=== PATIENT | male | born 1950 | race Caucasian/White ===

== ENCOUNTER 2018-03-05 15:22 | Inpatient (IN) | payer BC ==
[~2018-03-05 15:22] MED LIST: ISOVUE-370 76%-LOCM 1 ML ONE
[2018-03-05 16:00] LABS: #Lymphocytes 0.9 thou/uL (1.20-3.40); #Monocytes 0.6 thou/uL (0.11-0.59); %Basophils 0.4 % (0.0-1.0); %Eosinophils 0.3 % (0.0-10.0); %Lymphocytes 11.9 % (21.0-51.0); %Monocytes 7.4 % (0.0-10.0); %Neutrophils 80.1 % (42.0-75.0); Hemoglobin 15.5 g/dL (14.0-18.0); Mean Corpuscular HGB CONC 32.2 g/dL (32.0-36.0); Mean Corpuscular Hemoglobin 32.8 pg (27.0-31.0); Mean Platelet Volume 9.6 fL (7.4-10.4); Platelet Count 125 thou/uL (130-400); RBC Distribution Width 14.5 % (11.5-14.5); Red Blood Cell (RBC) Count 4.74 mill/uL (4.70-6.10); White Blood Cell (WBC) Count 7.4 thou/uL (4.8-10.8)
--- NOTE | 2018-03-05 16:07 | RAD ---
AP CHEST: History: Chest pain. Shortness of breath. Date: 03-05-18 Comparison: 09-22-10 FINDINGS: AP chest demonstrates cardiomegaly. Sternotomy wires are seen. There is blunting of the right costoph renic angle compatible with a right sided pleural effusion. Extensive pulmonary vascular congestion is noted. IMPRESSION: 1. Right sided pleural effusion with some component of possible right lower lobe pneumonia or mass. 2. Cardiomegaly and pulmonary vascular congestion. POS: JED
[2018-03-05 16:18] LABS: ALT (SGPT) 18 U/L (8-55); AST (SGOT) 33 U/L (5-34); Albumin 3.8 g/dL (3.4-4.8); Alkaline Phosphatase 93 U/L (40-150); Anion Gap 15 mmol/L (10-20); BUN (Urea Nitrogen) 11 mg/dL (8.4-25.7); Bilirubin, Total 1.5 mg/dL (0.2-1.2); CK (CPK) 236 U/L (30-200); Calc. Creatinine Clearance 0 mL/min (70-130); Calcium 9.6 mg/dL (7.8-10.44); Carbon Dioxide 26 mmol/L (23-31); Chloride 99 mmol/L (98-107); Estimated GFR-MDRD 66; Globulin 4.8 g/dL (2.4-3.5); Glucose 164 mg/dL (80-115); Lipase 25 U/L (8-78); Potassium 3.5 mmol/L (3.5-5.1); Protein, Total 8.6 g/dL (5.8-8.1); Sodium 136 mmol/L (136-145)
[2018-03-05 16:22] LABS: Troponin I 0.126 ng/mL (< 0.028)
[2018-03-05 16:24] LABS: CKMB 9.7 ng/mL (0-6.6)
[2018-03-05] MEDS ORDERED: Nitroglycerin 2% Ointment 1 INCH/1 GM Packet ONE (16:46)
[2018-03-05] MEDS ORDERED: Morphine 4 MG/ML VIAL ONE (17:34)
[2018-03-05] MEDS ORDERED: methylPREDNISolone Sod Succ/PF 125 MG/2 ML VIAL ONE (17:35)
[2018-03-05] MEDS ORDERED: Furosemide 40 MG/4 ML VIAL ONE (17:35)
--- NOTE | 2018-03-05 18:41 | CT ---
CTA CHEST WITH 3D VOLUME RENDERIN03/05/18 INDICATION: Chest pain, short of breath. FINDINGS: No large, central filling defect to indicate pulmonary embolus. Limited evaluation of the distal, seg mental pulmonary arterial branches due to heterogeneity of contrast bolus. There is consolidation of the right middle and lower lobe with moderate volume pleural fluid demonstrating complex morphology. There is abnormal interstitial opacification with honeycombing bilaterally. Mild scattered ground gla ss alveolar opacities are also seen. Incidental note of cirrhotic morphology of the liver and moderat e distention of the gallbladder. Incomplete assessment of the aorta on the basis of the technique of this exam. Mildly enlarged thoracic lymph nodes are present, of indeterminate etiology. There is scat tered osseous degenerative change and evidence of prior sternotomy. IMPRESSION: No large, central pulmonary embolus. Multifocal consolidation of the right lung with complex appearin g moderate volume right pleural fluid. Findings suggests pneumonia with complex pleural fluid, theref ore empyema is not excluded. Recommend clinical correlation. Findings are superimposed upon pulmonary fibrosis. Recommend pulmonology consultation, and imaging followup to confirm resolution of multifocal opacitie s, as underlying neoplasm not excluded on the basis of this exam. Mild enlargement of the regional lymph nodes which may be followed at time of short term imaging foll owup. POS: SJ
--- NOTE | 2018-03-05 18:50 | HP ---
DATE OF ADMISSION: 03/05/2018 PRIMARY CARE PHYSICIAN: Dr. Faust at [facility]. PRIMARY RESEARCH EXECUTIVE: Dr. Mcnamara. Please note that patient has not seen Dr. Mcnamara for last 2 y ears or so. CHIEF COMPLAINT: Chest discomfort along with shortness of breath and bilateral lower extremity swell ing for last few weeks. It got worse over the last 1-2 days. HISTORY OF PRESENT ILLNESS: Patient is a 67-year-old male with coronary artery disease, status post coronary artery bypass grafting x4 in 2009, presented to the emergency room with the above complaints . The patient has history of chronic low back pain. He also has history of several falls in the pas t. Four months ago, the patient was started on Lyrica along with naproxen. Patient has discontinued Lyrica; however, continues to take naproxen. Over the past few weeks or so, the patient noticed gra dual worsening shortness of breath along with bilateral lower extremity swelling, right more than lef t. He also had intermittent chest pain, especially on exertion over the last 1-2 days. He was unabl e to lie down flat. He also had some wheezing along with mild productive cough. The chest discomfor t was substernal, moderate to severe in intensity without any aggravating or relieving factor. He de nies recent immobilization, travel, palpitations, diaphoresis, or nausea. He is compliant with his h ome medications that include aspirin, Lasix, inhalers, and naproxen. PAST MEDICAL HISTORY: 1. Coronary artery disease, status post coronary artery bypass grafting in 2009. 2. Hyperlipidemia. 3. GERD. 4. History of GI bleeding. 5. COPD. 6. Congestive heart failure, ejection fraction 25%-30% in the past. 7. Mitral regurgitation. 8. Aortic insufficiency. PAST SURGICAL HISTORY: 1. Coronary artery bypass grafting x4 in 2009. 2. Mitral ring annuloplasty at the time of CABG. 3. Testicular biopsy. ALLERGIES: PENICILLIN. FAMILY HISTORY: Negative for coronary artery disease. SOCIAL HISTORY: Patient smokes up to 1 pack a day. He also abuses cannabis. Denies significant alc ohol use. 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 HOME MEDICATIONS: As discussed above. REVIEW OF SYSTEMS: The following complete review of systems was negative, unless otherwise mentioned in the HPI or below: Constitutional: Weight loss or gain, ability to conduct usual activities. Sk in: Rash, itching. Eyes: Double vision, pain. ENT/Mouth: Nose bleeding, neck stiffness, pain, te nderness. Cardiovascular: Palpitations, dyspnea on exertion, orthopnea. Respiratory: Shortness of breath, wheezing, cough, hemoptysis, fever or night sweats. Gastrointestinal: Poor appetite, abdom inal pain, heartburn, nausea, vomiting, constipation, or diarrhea. Genitourinary: Urgency, frequenc y, dysuria, nocturia. Musculoskeletal: Pain, swelling. Neurologic/Psychiatric: Anxiety, depressio n. Allergy/Immunologic: Skin rash, bleeding tendency. PHYSICAL EXAMINATION: VITAL SIGNS: Temperature 98.4, respiration of 28, pulse rate of 103, blood pressure 136/83. His O2 saturation at the time of my evaluation is dropping in high 80s. GENERAL: A 67-year-old male in mild to moderate respiratory distress, able to complete short phrases . HEENT: Atraumatic, normocephalic, sclerae are anicteric. Dry mucous membrane, no oral lesion. NECK: Supple. JVD elevated. There is accessory muscle use. LUNGS: Diffuse expiratory wheezing with bibasilar rales. Lungs were symmetrical. There was scatter ed rhonchi as well. HEART: S1, S2 present, tachycardic, 2/6 systolic murmur over the mitral area. No heaves or pulsatio n. Healed midline scar from previous CABG. ABDOMEN: Soft, nontender, bowel sounds present, no rebound or guarding. EXTREMITIES: Bilateral lower extremity edema, right more than left with changes consistent with auditor/quality janie venous stasis, mainly in the right. NEUROLOGIC: Grossly nonfocal, moves all four extremities. PSYCHIATRY: Alert, awake, oriented x3. SKIN: Warm and dry. LYMPH NODES: No palpable lymph nodes in the neck. PERIPHERAL VASCULAR: Radial pulses palpable bilaterally. MUSCULOSKELETAL: No joint swelling or tenderness. SKIN: Warm and dry. LABORATORY AND X-RAY FINDINGS: CBC showed WBC of 7.4 with hemoglobin 15.5, hematocrit 48.2, and plat elet count of 125. Chemistries showed sodium 136, potassium 3.5, chloride 99, bicarbonate 26, BUN 11 , creatinine 1.11. Troponin of 0.126 with CK-MB 9.7. CK was 236. EKG by my review showed sinus tac hycardia with PVCs. Chest x-ray by my review showed cardiomegaly with pulmonary vascular congestion. CT angiogram of the chest has been done, report pending at this time. IMPRESSION AND PLAN: 1. Acute hypoxic respiratory failure secondary to congestive heart failure exacerbation. 2. Chest pain with suspected non-ST elevation myocardial infarction, rule out acute coronary syndrom e. 3. Acute on chronic systolic heart failure exacerbation. 4. Coronary artery disease, status post coronary artery bypass grafting. 5. Severe mitral regurgitation, status post mitral ring annuloplasty in 2009. 6. History of gastrointestinal bleeding, on aspirin. 7. Ongoing tobacco abuse. 8. Cannabis abuse. 9. Chronic obstructive pulmonary disease with possible chronic obstructive pulmonary disease exacerb ation. 10. Hyperlipidemia. 11. Moderate aortic insufficiency. PLAN: The patient will be monitored in the intermediate care unit. We will start him on diuretics a long with nitro patch, oxygen, steroids, and nebulizer treatment. We will start him on noninvasive p ositive pressure ventilation. Cardiology and Pulmonary will be consulted in a.m. Serial troponins. We will give him magnesium and potassium tonight. We will recheck labs in a.m. Plan of care was discussed with the patient in detail. He stated understanding.
[2018-03-05] MEDS ORDERED: Nitroglycerin 0.4 MG TAB (25 Tab Bottle) PO PRN (18:58)
[2018-03-05] MEDS ORDERED: Lorazepam 0.5 MG TAB PO PRN (18:58)
[2018-03-05] MEDS ORDERED: Ondansetron ODT 4 MG TAB PO PRN (18:58)
[2018-03-05] MEDS ORDERED: HYDROcodone/Acetaminophen 5/325 mg Tablet PO PRN (18:58)
[2018-03-05] MEDS ORDERED: Ondansetron HCl/PF 4 MG/2 ML Vial IVP PRN ×2 (18:58)
[2018-03-05] MEDS ORDERED: Morphine 4 MG/ML VIAL SLOW IVP PRN (18:58)
[2018-03-05] MEDS ORDERED: Senokot 8.6 MG TAB PO PRN (18:58)
[2018-03-05] MEDS ORDERED: hydrALAZINE 20 MG/ML VIAL SLOW IVP PRN (18:58)
[2018-03-05] MEDS ORDERED: Ondansetron ODT 4 MG TAB SL PRN (18:58)
[2018-03-05] MEDS ORDERED: Acetaminophen 325 MG TAB PO PRN ×2 (18:58)
[2018-03-05] MEDS ORDERED: Magnesium 2 GM/NS 0.9% 100 ML 2 GM in Premix Bag 1 BAG IVPB SCH (19:15)
[2018-03-05] MEDS ORDERED: Potassium Chloride 40 MEQ in Sodium Chloride 0.9% 250 ML 250 ML IVPB SCH (19:30)
[2018-03-05] MEDS: cefTRIAXone\\ROCEPHIN 1 GM, Syringe 0.4 ML in Sterile Water 9.6 ML SLOW IVP SCH (19:55)
[2018-03-05 20:11] VITALS: BMI 31.3
[2018-03-05] MEDS: Famotidine 20 MG TAB PO SCH (20:25)
[2018-03-05] MEDS: Docusate 100 MG CAP PO SCH (20:25)
[2018-03-05] MEDS ORDERED: cefTRIAXone\\ROCEPHIN 1 GM in Sodium Chloride 0.9% 100 ML IVPB SCH (21:00)
[2018-03-05] MEDS: Furosemide 40 MG/4 ML VIAL SLOW IVP SCH (22:21)
[2018-03-06] MEDS: Nitroglycerin 2% Ointment 1 INCH/1 GM Packet TOP SCH ×5 (00:15→23:42)
[2018-03-06 05:47] LABS: Hemoglobin 15.7 g/dL (14.0-18.0); Mean Corpuscular HGB CONC 31.5 g/dL (32.0-36.0); Mean Corpuscular Hemoglobin 32.2 pg (27.0-31.0); Mean Platelet Volume 9.9 fL (7.4-10.4); Platelet Count 138 thou/uL (130-400); RBC Distribution Width 14.6 % (11.5-14.5); Red Blood Cell (RBC) Count 4.88 mill/uL (4.70-6.10)
[2018-03-06 05:50] LABS: Band 1 % (5-11); Lymphocytes 4 % (21-51); Neutrophil 95 % (42-75)
[2018-03-06 05:51] LABS: MDiff Complete? YES
[2018-03-06 05:53] LABS: Troponin I 0.124 ng/mL (< 0.028)
[2018-03-06 05:59] LABS: ALT (SGPT) 20 U/L (8-55); AST (SGOT) 32 U/L (5-34); Albumin 4.1 g/dL (3.4-4.8); Alkaline Phosphatase 94 U/L (40-150); Anion Gap 15 mmol/L (10-20); BUN (Urea Nitrogen) 13 mg/dL (8.4-25.7); Bilirubin, Total 0.9 mg/dL (0.2-1.2); Calc. Creatinine Clearance 81 mL/min (70-130); Calcium 9.8 mg/dL (7.8-10.44); Carbon Dioxide 27 mmol/L (23-31); Cardiac Risk 5.2 (Less than 4.5); Chloride 98 mmol/L (98-107); Cholesterol 177 mg/dl (< 200 Desired); Estimated GFR-MDRD 61; Glucose 144 mg/dL (80-115); HDL Cholesterol 34 mg/dL (>60 Neg Risk); LDL Cholesterol, Calculated 127 mg/dL; Magnesium 2.3 mg/dL (1.6-2.6); Phosphorus 4.2 mg/dL (2.3-4.7); Potassium 4.4 mmol/L (3.5-5.1); Protein, Total 9.1 g/dL (5.8-8.1); Sodium 136 mmol/L (136-145); Triglycerides 79 mg/dL (Less than 150)
[2018-03-06 06:05] LABS: CKMB 8.7 ng/mL (0-6.6); Critical Call CKMBM RESULT DECREASING
[2018-03-06] MEDS: Furosemide 40 MG/4 ML VIAL SLOW IVP SCH ×2 (06:21→14:20)
[2018-03-06] MEDS: Mometasone/Formoterol 120 PUFF INHALER INH SCH ×2 (07:24→18:39)
--- NOTE | 2018-03-06 08:19 | RAD ---
PORTABLE CHEST 1 VIEW: Date: 03/06/18 Time: 0536 hours HISTORY: Shortness of breath. FINDINGS: Comparison made with exam from previous day. No significant interval change is seen. IMPRESSION: Stable exam. POS: OFF
[2018-03-06] MEDS: Famotidine 20 MG TAB PO SCH ×2 (08:27→20:32)
[2018-03-06] MEDS: Potassium Chloride 20 MEQ TAB PO SCH ×2 (08:27→17:17)
[2018-03-06] MEDS: Docusate 100 MG CAP PO SCH ×2 (08:27→20:32)
[2018-03-06] MEDS: Aspirin 325 MG TAB PO SCH (08:27)
[2018-03-06] MEDS ORDERED: Doxycycline 100 MG CAP PO SCH (12:00)
--- NOTE | 2018-03-06 13:25 | CON ---
CARDIOLOGY CONSULTATION NOTE DATE OF CONSULTATION: 03/06/2018 REASON FOR CONSULTATION: Heart failure. PRIMARY CARD PAINTER: Arnold Mcnamara M.D. HISTORY OF PRESENT ILLNESS: Mr. Herrera is a very pleasant 67-year-old white gentleman who comes to [facility] for increased shortness of breath. He had noticed increased shortness of breath and bila teral lower extremity swelling for the last few weeks, worsening in the last 1-2 days, so he decided to come in for this. He has a history of coronary artery disease, had bypass grafting x4 [place] [address] Martin. He followed up with Dr. Mcnamara up until 2011. He has not seen him in the office since. He stopped all of his medications recently as he felt this was the problem and he presented here ye sterday for difficulty breathing. He already received a few doses of Lasix and has diuresed well and feels much better now, not quite to his baseline, but breathing is back to normal, so Cardiology is being consulted for further evaluation. His EF back in 2009 when he needed surgery was about 25% to 30%. PAST MEDICAL HISTORY: 1. Coronary artery disease as above. 2. Hyperlipidemia. 3. Gastroesophageal reflux disease. 4. Gastrointestinal bleeding in the past. 5. Chronic obstructive pulmonary disease. 6. Ischemic cardiomyopathy, EF of 25% to 30% in the past. 7. Mild MR. 8. AI. PAST SURGICAL HISTORY: 1. CABG x4 in 2009. 2. Mitral annuloplasty at the time of the bypass. 3. Testicular biopsy. OUTPATIENT MEDICATIONS: None currently. ALLERGIES: PENICILLIN. HOME MEDICATIONS: 1. Lasix 40 mg a day. 2. Lyrica 100 mg b.i.d. 3. Naproxen 500 mg b.i.d. 4. Levalbuterol. 5. Aspirin 81 mg a day. SOCIAL HISTORY: Smokes up to a pack a day, uses marijuana as well. Denies alcohol use. FAMILY HISTORY: Noncontributory. REVIEW OF SYSTEMS: Twelve-point review of systems was done and is all negative unless stated in the history of present illness. PHYSICAL EXAMINATION: VITAL SIGNS: Temperature 97.5, pulse 90, respiration rate 16, satting 94% on 3 liters nasal cannula and blood pressure 146/78. GENERAL: Awake, alert and oriented x3, in no distress. HEENT: Normocephalic and atraumatic. NECK: Supple. LUNGS: Reduced breath sounds bilaterally with expiratory wheezes with mild crackles at bilateral bas es. ABDOMEN: Soft. Positive bowel sounds. CARDIOVASCULAR: S1 and S2. No S3 or S4. EXTREMITIES: 1+ edema bilateral. SKIN: Warm and dry. LABORATORY DATA: Laboratory work was reviewed. CBC was reviewed. Chemistries were reviewed. Tropo nins were 0.12 and 0.12. CK-MB was high at 9.7 and 8.7. TSH was normal. Lipase was normal. LDL of 127, HDL of 34, total cholesterol 177, triglycerides of 79, BUN and creatinine were normal. GFR of 61. BNP was 673. IMAGING DATA: CT of the thorax showed what appeared to be either pneumonia or pulmonary edema with a right pleural effusion. Echocardiogram has already been reviewed from today. His LV function is about 40% to 45%. Grade I/I II diastolic dysfunction. There is mild TR. Mitral annular calcification was present, but this is p robably ring annuloplasty and there is mild to moderate aortic regurgitation. ASSESSMENT: 1. Acute on chronic systolic heart failure. 2. Coronary artery disease, stable at this time. 3. Status post bypass grafting x5. 4. Status post mitral valve annuloplasty. 5. Possible pneumonia. 6. Medication noncompliance. PLAN: 1. Agree with continued IV diuresis. He is still not quite back to his baseline. I have encouraged him to continue taking all his medications indefinitely without stopping them. If he does for now, he needs to get a hold of this. He also been counseled on followup appointments that this is somethi ng that needs to be done for the rest of his life. 2. We will add a statin to his regimen, continue aspirin. Beta juilano maybe somewhat prohibitive d ue to his COPD, but we will attempt to add it in the next few days. 3. Add BRODIE inhibitor. Thank you for letting us to participate in the care of your patient. We will continue to follow.
--- NOTE | 2018-03-06 20:20 | PDOC.PN ---
- Subjective Encounter Start Date: 03/06/18 Encounter Start Time: 10:00 Patient seen and examined. No new complaints. No overnight events. SOB improving. Off NIPPV. No CP - Objective Resuscitation Status: Resuscitation Status FULL:Full Resuscitation MAR Reviewed: Yes Vital Signs & Weight: Vital Signs (12 hours) Temp Pulse Pulse Pulse Resp BP BP 03/06/18 18:38 86 16 03/06/18 16:43 97.8 F 100 16 03/06/18 13:36 99 18 03/06/18 13:00 03/06/18 11:31 98.4 F 97 19 03/06/18 10:59 107 H 20 03/06/18 10:23 109 H 107 H 129/71 146/78 H BP Pulse Ox Pulse Ox Pulse Ox 03/06/18 18:38 96 03/06/18 16:43 130/74 92 L 03/06/18 13:36 97 03/06/18 13:00 91 L 03/06/18 11:31 123/65 90 L 03/06/18 10:59 03/06/18 10:23 92 L 94 L Weight Weight 216 lb 3.2 oz I&O: 03/05/18 03/06/18 03/07/18 06:59 06:59 06:59 Intake Total 910 425 Output Total 2500 450 Balance -1590 -25 Result Diagrams: 03/07/18 03:53 03/07/18 03:53 Radiology Reviewed by me: Yes (CTA - ?pneumonia) EKG Reviewed by me: Yes (Tele SR) Phys Exam - Physical Examination Constitutional: NAD HEENT: PERRLA Neck: no JVD Respiratory: wheezing present Bibasilar rales, Scat rhonchi, Symmetrical Cardiovascular: RRR, no rub Gastrointestinal: soft, non-tender, no distention, positive bowel sounds Musculoskeletal: pulses present, edema present Neurological: non-focal, normal sensation, moves all 4 limbs Psychiatric: normal affect, A&O x 3 Skin: no rash Dx/Plan - Plan continue antibiotics, DVT proph w/lovenox, DVT proph w/SCDs IMPRESSION AND PLAN: 1. Acute hypoxic respiratory failure secondary to congestive heart failure exacerbation. 2. Chest pain with suspected non-ST elevation myocardial infarction, rule out acute coronary syndrome. 3. Acute on chronic systolic heart failure exacerbation. 4. Coronary artery disease, status post coronary artery bypass grafting. 5. Severe mitral regurgitation, status post mitral ring annuloplasty in 2010. 6. History of gastrointestinal bleeding, on aspirin. 7. Ongoing tobacco abuse. 8. Cannabis abuse. 9. Chronic obstructive pulmonary disease with possible chronic obstructive pulmonary disease exacerbation. 10. Hyperlipidemia. 11. Moderate aortic insufficiency. PLAN: * Add Doxycycline * Cont diuretics * AM labs * Await Cardio/Pulm input * Cont steroids * Transfer to tele * Cont current meds as below Review of Systems - Review of Systems Constitutional: negative: fever, chills, sweats, weakness, malaise, other Respiratory: negative: Cough, Dry, Shortness of Breath, Hemoptysis, SOB with Excertion, Pleuritic Pain, Sputum, Wheezing Gastrointestinal: negative: Nausea, Vomiting, Abdominal Pain, Diarrhea, Constipation, Melena, Hematochezia, Other - Medications/Allergies Allergies/Adverse Reactions: Allergies Allergy/AdvReac Type Severity Reaction Status Date / Time Penicillins Allergy Verified 03/06/18 06:20 Medications: Current Medications Acetaminophen (Tylenol) 650 mg PO Q4H PRN PRN Reason: Headache/Fever or Pain Hydrocodone Bitart/Acetaminophen ([place] 5/325) 1 tab PO Q6H PRN PRN Reason: Moderate Pain (4-6) Albuterol/Ipratropium (Duoneb) 3 ml NEB [id number] [facility] Last Admin: 03/06/18 18:38 Dose: 3 ml Albuterol/Ipratropium (Duoneb) 3 ml NEB Q2H PRN PRN Reason: SOB &/or Wheezing Aspirin (Aspirin) 325 mg PO QAM-WM [facility] Last Admin: 03/06/18 08:27 Dose: 325 mg Docusate Sodium (Colace) 100 mg PO BID [facility] Last Admin: 03/06/18 08:27 Dose: 100 mg Doxycycline Hyclate (Vibramycin) 100 mg PO BID [facility] Famotidine (Pepcid) 20 mg PO BID [facility] Last Admin: 03/06/18 08:27 Dose: 20 mg Furosemide (Lasix) 40 mg SLOW IVP 0600,1400 [facility] Last Admin: 03/06/18 14:20 Dose: 40 mg Hydralazine HCl (Apresoline) 10 mg SLOW IVP Q4H PRN PRN Reason: SBP Greater Than 180 Ceftriaxone Sodium 1 gm/ (Syringe 0.4 ml/ Sterile Water) 10 mls @ 120 mls/hr SLOW IVP 1999 [facility] Last Admin: 03/05/18 19:55 Dose: 10 mls Lorazepam (Ativan) 0.5 mg PO Q6H PRN PRN Reason: Anxiety Methylprednisolone Sodium Succinate (Solu-Medrol) 20 mg IVP Q8HR [facility] Last Admin: 03/06/18 14:20 Dose: 20 mg Mometasone Furoate/Formoterol Fumar (Dulera 200 Mcg/5 Mcg Inhaler) 2 puff INH BID-RT [facility] Last Admin: 03/06/18 18:39 Dose: 2 puff Nitroglycerin (Nitrostat) 0.4 mg PO Q5MIN PRN PRN Reason: Chest Pain Nitroglycerin (Nitro-Bid 2% Ointment) 1 inch TOP Q6HR [facility] Last Admin: 03/06/18 17:17 Dose: 1 inch Ondansetron HCl (Zofran) 4 mg IVP Q6H PRN PRN Reason: Nausea/Vomiting Ondansetron HCl (Zofran Odt) 4 mg PO Q6H PRN PRN Reason: Nausea/Vomiting Potassium Chloride (K-Dur) 20 meq PO BID-WM [facility] Last Admin: 03/06/18 17:17 Dose: 20 meq Senna (Senokot) 2 tab PO HSPRN PRN PRN Reason: Constipation Sodium Chloride (Flush - Normal Saline) 10 ml IVF PRN PRN PRN Reason: Saline Flush
[2018-03-06] MEDS: cefTRIAXone\\ROCEPHIN 1 GM, Syringe 0.4 ML in Sterile Water 9.6 ML SLOW IVP SCH (20:31)
[2018-03-06] MEDS: Doxycycline 100 MG CAP PO SCH (20:32)
--- NOTE | 2018-03-06 23:51 | CON ---
HISTORY OF PRESENT ILLNESS: Stuart Herrera is a very pleasant 67-year-old gentleman who was admitted for cough and shortness of breath. He said he has had a cough for several weeks and shortness of breath, but no purulent sputum or hemoptysis. He has been seen by the timber robber and the thoracic surgeons in the past after he had heart surgery in 2009. He has been followed up with Dr. Mcnamara since 2011. He also stopped all of his medicines. He presents with an abnormal radiograph and chest CT. I was consulted. PAST MEDICAL HISTORY: 1. Remarkable for coronary artery bypass grafting. 2. History of cardiomyopathy with an ejection fraction of 30%. 3. Lipid disorder. 4. GI bleeding with reflux disease in the past. 5. History of mitral regurgitation and aortic insufficiency. 6. History of mitral valve annuloplasty with bypass in 2009. 7. History of testicular biopsy. ALLERGIES: He is on no medications on admission. SOCIAL HISTORY: He is a daily smoker and daily marijuana user he says. He denies alcohol use. He is also a daily bourbon drinker. FAMILY HISTORY: Negative for lung disease. REVIEW OF SYSTEMS: 10 point system completely negative otherwise. He says his last drink was 3 days ago. He has never had withdrawal. He says he only has 1 bourbon drink at night. PHYSICAL EXAMINATION: GENERAL: Patient is a very pleasant gentleman. VITAL SIGNS: Afebrile, heart rate 86, respiratory rate 16, oximetry is 96 on 3 liter cannula. Blood pressure 130/74. HEENT: Pupils are equal. Sclerae is anicteric. NECK: Supple. He appears older than his age. LUNGS: Remarkable for crackles intermediate up on the right. He has fine crackles at his left base. Really does not have much dullness to percussion at his right base. HEART: Regular rhythm. S1 and S2 are normal. ABDOMEN: Soft and nontender. EXTREMITIES: Without clubbing, cyanosis, or edema. DIAGNOSTIC DATA: Chest radiograph suggestive of an organizing effusion at his right base. Chest CT suggests the same. No pulmonary emboli identified. He has an alveolar infiltrate in his right base. IMPRESSION: 1. Pneumonia with parapneumonic effusion. 2. Noncompliance with medical followup and noncompliance with prescription medications after heart surgery with a cardiomyopathy. I will repeat a radiograph in the morning. This effusion could be improved with diuresis. PLAN: We may consider thoracentesis. He has nothing to suggest. He has an infected pleural space, but he could have a complex effusion. This is a 50-minute consult with greater than 50% of the time was spent on unit coordinating care. NEYDA
[2018-03-07 04:30] LABS: Band 9 % (5-11); Hemoglobin 15.4 g/dL (14.0-18.0); Lymphocytes 2 % (21-51); MDiff Complete? YES; Mean Corpuscular HGB CONC 32.4 g/dL (32.0-36.0); Mean Corpuscular Hemoglobin 32.9 pg (27.0-31.0); Mean Platelet Volume 9.9 fL (7.4-10.4); Monocytes 8 % (0-10); Neutrophil 81 % (42-75); Platelet Count 147 thou/uL (130-400); RBC Distribution Width 14.5 % (11.5-14.5); Red Blood Cell (RBC) Count 4.69 mill/uL (4.70-6.10); White Blood Cell (WBC) Count 14.6 thou/uL (4.8-10.8)
[2018-03-07 04:50] LABS: ALT (SGPT) 19 U/L (8-55); AST (SGOT) 34 U/L (5-34); Albumin 4.1 g/dL (3.4-4.8); Alkaline Phosphatase 98 U/L (40-150); Anion Gap 18 mmol/L (10-20); BUN (Urea Nitrogen) 24 mg/dL (8.4-25.7); Bilirubin, Total 0.6 mg/dL (0.2-1.2); Calc. Creatinine Clearance 68 mL/min (70-130); Calcium 9.9 mg/dL (7.8-10.44); Carbon Dioxide 25 mmol/L (23-31); Chloride 99 mmol/L (98-107); Estimated GFR-MDRD 49; Globulin 4.9 g/dL (2.4-3.5); Glucose 128 mg/dL (80-115); Sodium 137 mmol/L (136-145)
[2018-03-07] MEDS: Furosemide 40 MG/4 ML VIAL SLOW IVP SCH (05:22)
[2018-03-07] MEDS: Nitroglycerin 2% Ointment 1 INCH/1 GM Packet TOP SCH (05:23)
--- NOTE | 2018-03-07 09:14 | RAD ---
TWO AP VIEWS CHEST: HISTORY: Chest pain and respiratory distress, shortness of breath. FINDINGS: AP view chest is obtained on 03/07/18. Comparison is made to previous exam from 03/06/18. AP view chest demonstrates sternotomy wires seen. Cardiomegaly noted. Pulmonary vascular congestion is seen. There is blunting of the costophrenic angles bilaterally compatible with bilateral pleural effusions larger on the right than on the left. IMPRESSION: Cardiomegaly, pulmonary vascular congestion, and bilateral pleural effusions. POS: JEDH
[2018-03-07] MEDS: Docusate 100 MG CAP PO SCH ×2 (09:18→20:56)
[2018-03-07] MEDS: Potassium Chloride 20 MEQ TAB PO SCH (09:18)
[2018-03-07] MEDS: Famotidine 20 MG TAB PO SCH ×2 (09:19→20:57)
[2018-03-07] MEDS: Doxycycline 100 MG CAP PO SCH ×2 (09:19→20:56)
[2018-03-07] MEDS: Aspirin 325 MG TAB PO SCH (09:19)
[2018-03-07] MEDS: Mometasone/Formoterol 120 PUFF INHALER INH SCH ×2 (10:15→18:37)
--- NOTE | 2018-03-07 16:30 | PDOC.CTH ---
Cardiology Progress Note - Subjective His breathing is better today. - Objective Vital Signs Temp Pulse Pulse Pulse Resp BP BP 03/07/18 15:21 117 H 16 03/07/18 12:19 96 12 03/07/18 11:55 98.8 F 92 26 H 03/07/18 11:21 100 99 129/79 140/83 03/07/18 10:16 03/07/18 10:15 98 20 03/07/18 09:15 98 16 03/07/18 08:30 98.7 F 117 H 16 03/07/18 08:24 98 20 03/07/18 08:00 98.7 F 107 H 20 BP BP Pulse Ox Pulse Ox Pulse Ox 03/07/18 15:21 03/07/18 12:19 03/07/18 11:55 142/84 H 92 L 03/07/18 11:21 93 L 90 L 03/07/18 10:16 94 L 03/07/18 10:15 03/07/18 09:15 120/72 93 L 03/07/18 08:30 92 L 03/07/18 08:24 03/07/18 08:00 114/68 91 L Weight 212 lb 12.8 oz 03/06/18 03/07/18 03/08/18 06:59 06:59 06:59 Intake Total 910 1045 Output Total 2500 1150 250 Balance -1590 -105 -250 - Physical Examination General/Neuro: alert & oriented x3, NAD Neck: no JVD present Lungs: other: (Reduced breath sounds bilat. ) Heart: RRR Abdomen: NT/ND Extremities: + edema B (1+) - Telemetry Telemetry Rhythm: S Tach - Labs Result Diagrams: 03/07/18 03:53 03/07/18 03:53 Troponin/CKMB CK-MB (CK-2) 8.7 ng/mL (0-6.6) H* 03/06/18 05:08 Troponin I 0.124 ng/mL (< 0.028) H 03/06/18 05:08 - Assessment/Plan 1. Acute on chronic systolic heart failure 2. CAD 3. s/p CABG x 5 in 2009 4. Possible pneumonia 5. S/P Mitral valvuloplasty 6. Non compliance. 7. COPD. PLAN: - Continue IV diuresis. - Continue other meds.
[2018-03-07] MEDS ORDERED: Fentanyl 100 MCG/2 ML VIAL SLOW IVP PRN (17:17)
--- NOTE | 2018-03-07 17:53 | PDOC.PN ---
- Subjective Encounter Start Date: 03/07/18 Encounter Start Time: 10:45 Patient seen and examined. No new complaints. No overnight events. SOB improving. Some dry cough. Walked in hallway with cardiac rehab - Objective Resuscitation Status: Resuscitation Status FULL:Full Resuscitation MAR Reviewed: Yes Vital Signs & Weight: Vital Signs (12 hours) Temp Pulse Pulse Pulse Resp BP BP 03/07/18 16:34 98.1 F 114 H 24 H 03/07/18 15:21 117 H 16 03/07/18 12:19 96 12 03/07/18 11:55 98.8 F 92 26 H 03/07/18 11:21 100 99 129/79 140/83 03/07/18 10:16 03/07/18 10:15 98 20 03/07/18 09:15 98 16 03/07/18 08:30 98.7 F 117 H 16 03/07/18 08:24 98 20 03/07/18 08:00 98.7 F 107 H 20 BP BP Pulse Ox Pulse Ox Pulse Ox 03/07/18 16:34 123/85 89 L 03/07/18 15:21 03/07/18 12:19 03/07/18 11:55 142/84 H 92 L 03/07/18 11:21 93 L 90 L 03/07/18 10:16 94 L 03/07/18 10:15 03/07/18 09:15 120/72 93 L 03/07/18 08:30 92 L 03/07/18 08:24 03/07/18 08:00 114/68 91 L Weight Weight 212 lb 12.8 oz I&O: 03/06/18 03/07/18 03/08/18 06:59 06:59 06:59 Intake Total 910 1045 Output Total 2500 1150 250 Balance -1590 -105 -250 Result Diagrams: 03/07/18 03:53 03/07/18 03:53 EKG Reviewed by me: Yes (Tele SR/ST) Phys Exam - Physical Examination Constitutional: NAD Respiratory: no wheezing B/L rhonchi, Dec AE at bases with bibasilar rales Cardiovascular: RRR Gastrointestinal: soft, non-tender, positive bowel sounds Musculoskeletal: edema present (improving) Dx/Plan - Plan DVT proph w/SCDs IMPRESSION AND PLAN: 1. Acute hypoxic respiratory failure secondary to congestive heart failure exacerbation 2. Chest pain with elevated troponins - prob due to demand ischemia 3. Acute on chronic systolic heart failure exacerbation - EF 40-45% this admision 4. Coronary artery disease, status post coronary artery bypass grafting 2009 5. Severe mitral regurgitation, status post mitral ring annuloplasty in 2009. 6. History of gastrointestinal bleeding, on aspirin. 7. Ongoing tobacco abuse. 8. Cannabis abuse. 9. Chronic obstructive pulmonary disease with chronic obstructive pulmonary disease exacerbation. 10. Hyperlipidemia. 11. Moderate aortic insufficiency. PLAN: * Cont Ceftriaxone with Doxycycline * Cont diuretics - change to daily due to elevated Cr * AM labs * Cardio/Pulm following * Cont steroids * Cont current meds as below * DC PO Potassium Review of Systems - Review of Systems Constitutional: negative: fever, chills, sweats, weakness, malaise, other Gastrointestinal: negative: Nausea, Vomiting, Abdominal Pain, Diarrhea, Constipation, Melena, Hematochezia, Other Genitourinary: negative: Dysuria, Frequency, Incontinence, Hematuria, Retention , Other - Medications/Allergies Allergies/Adverse Reactions: Allergies Allergy/AdvReac Type Severity Reaction Status Date / Time Penicillins Allergy Verified 03/06/18 06:20 Medications: Current Medications Acetaminophen (Tylenol) 650 mg PO Q4H PRN PRN Reason: Headache/Fever or Pain Hydrocodone Bitart/Acetaminophen ([place] 5/325) 1 tab PO Q6H PRN PRN Reason: Moderate Pain (4-6) Albuterol/Ipratropium (Duoneb) 3 ml NEB [id number] [facility] Last Admin: 03/07/18 15:21 Dose: 3 ml Albuterol/Ipratropium (Duoneb) 3 ml NEB Q2H PRN PRN Reason: SOB &/or Wheezing Aspirin (Aspirin) 325 mg PO QAM-WM [facility] Last Admin: 03/07/18 09:19 Dose: 325 mg Docusate Sodium (Colace) 100 mg PO BID [facility] Last Admin: 03/07/18 09:18 Dose: 100 mg Doxycycline Hyclate (Vibramycin) 100 mg PO BID [facility] Last Admin: 03/07/18 09:19 Dose: 100 mg Enoxaparin Sodium (Lovenox) 40 mg SC 2100 [facility] Famotidine (Pepcid) 20 mg PO BID [facility] Last Admin: 03/07/18 09:19 Dose: 20 mg Fentanyl (Sublimaze) 25 mcg SLOW IVP Q4H PRN PRN Reason: Severe Pain (7-10) Furosemide (Lasix) 40 mg SLOW IVP DAILY [facility] Hydralazine HCl (Apresoline) 10 mg SLOW IVP Q4H PRN PRN Reason: SBP Greater Than 180 Ceftriaxone Sodium 1 gm/ (Syringe 0.4 ml/ Sterile Water) 10 mls @ 120 mls/hr SLOW IVP 1999 [facility] Last Admin: 03/06/18 20:31 Dose: 10 mls Lorazepam (Ativan) 0.5 mg PO Q6H PRN PRN Reason: Anxiety Methylprednisolone Sodium Succinate (Solu-Medrol) 20 mg IVP Q8HR [facility] Last Admin: 03/07/18 15:11 Dose: 20 mg Mometasone Furoate/Formoterol Fumar (Dulera 200 Mcg/5 Mcg Inhaler) 2 puff INH BID-RT [facility] Last Admin: 03/07/18 10:15 Dose: 2 puff Nitroglycerin (Nitrostat) 0.4 mg PO Q5MIN PRN PRN Reason: Chest Pain Ondansetron HCl (Zofran) 4 mg IVP Q6H PRN PRN Reason: Nausea/Vomiting Ondansetron HCl (Zofran Odt) 4 mg PO Q6H PRN PRN Reason: Nausea/Vomiting Senna (Senokot) 2 tab PO HSPRN PRN PRN Reason: Constipation Sodium Chloride (Flush - Normal Saline) 10 ml IVF PRN PRN PRN Reason: Saline Flush Last Admin: 03/07/18 05:23 Dose: 10 ml
--- NOTE | 2018-03-07 18:49 | PRG ---
DATE OF SERVICE: 03/07/2018 SUBJECTIVE: Mr. Stuart Herrera feels 100% better today. OBJECTIVE: VITAL SIGNS: His respiratory rate is in the teens. Blood pressure this morning is 129/79, later 140 /83. His oximetry is 92% to 93%. His heart rate is in the 90s. LUNGS: Remarkable for crackles at both lung bases. HEART: Regular rhythm. ABDOMEN: Soft. EXTREMITIES: Without asymmetry. LABORATORY AND IMAGING DATA: Chest radiographs have changed a little bit trending towards improvemen t. White count is 14.6, hemoglobin is 15.4 and platelets 147. I reviewed his chest radiograph. Electrolytes are unremarkable. Creatinine is 1.43. Intake and output is negative 105. IMPRESSION AND PLAN: 1. Systolic heart failure. 2. ?Chronic right pleural effusion. Clinically, he does not appear to have an infected pleural spac e. He says he feels a 1000% better than he felt when he came in. He says it has been months since h e walked and now he is walking up and down the small without any dyspnea. He may have a parapneumonic effusion mixed in with this, but also this could be a chronic effusion as sociated with his cardiomyopathy. I will continue to follow him clinically. Given his dramatic clinical improvement, I am inclined not to recommend thoracentesis at this time. Of note, I sat in the room with him for approximately 30 minutes after my evaluation. Apparently, hi s father (not his stepfather who raised him) was in contact with him by phone today. He says he has not seen his father in 60 years. Last time, he saw him was when he was 7 years old. He is very tearful and basically relates his life history including his history of living in the 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 He still obviously is having signifi cant emotional issues regarding these events. He might benefit from counseling at some point. I allan l be happy to evaluate him again tomorrow. No thoracentesis is planned today.
[2018-03-07] MEDS: cefTRIAXone\\ROCEPHIN 1 GM, Syringe 0.4 ML in Sterile Water 9.6 ML SLOW IVP SCH (20:54)
[2018-03-07] MEDS ORDERED: Enoxaparin Sodium 40 MG/0.4 ML SYRINGE SC SCH (21:00)
[2018-03-08 05:13] LABS: #Lymphocytes 0.5 thou/uL (1.20-3.40); #Monocytes 0.4 thou/uL (0.11-0.59); #Neutrophils 8.5 thou/uL (1.40-6.50); %Basophils 0.1 % (0.0-1.0); %Eosinophils 0.1 % (0.0-10.0); %Lymphocytes 5.2 % (21.0-51.0); %Monocytes 3.8 % (0.0-10.0); %Neutrophils 90.9 % (42.0-75.0); Hemoglobin 14.8 g/dL (14.0-18.0); Mean Corpuscular HGB CONC 31.9 g/dL (32.0-36.0); Mean Platelet Volume 9.9 fL (7.4-10.4); Platelet Count 127 thou/uL (130-400); RBC Distribution Width 14.6 % (11.5-14.5); Red Blood Cell (RBC) Count 4.49 mill/uL (4.70-6.10); White Blood Cell (WBC) Count 9.4 thou/uL (4.8-10.8)
[2018-03-08 05:37] LABS: Anion Gap 15 mmol/L (10-20); BUN (Urea Nitrogen) 31 mg/dL (8.4-25.7); Calc. Creatinine Clearance 72 mL/min (70-130); Calcium 9.7 mg/dL (7.8-10.44); Carbon Dioxide 26 mmol/L (23-31); Chloride 99 mmol/L (98-107); Estimated GFR-MDRD 54; Glucose 122 mg/dL (80-115); Magnesium 2.3 mg/dL (1.6-2.6); Potassium 4.9 mmol/L (3.5-5.1); Sodium 135 mmol/L (136-145)
[2018-03-08] MEDS: Mometasone/Formoterol 120 PUFF INHALER INH SCH ×2 (07:08→18:40)
[2018-03-08] MEDS: Aspirin 325 MG TAB PO SCH (08:48)
[2018-03-08] MEDS: Doxycycline 100 MG CAP PO SCH ×2 (08:48→20:11)
[2018-03-08] MEDS: Docusate 100 MG CAP PO SCH ×2 (08:48→20:11)
[2018-03-08] MEDS: Famotidine 20 MG TAB PO SCH ×2 (08:48→20:11)
[2018-03-08] MEDS: Cyanocobalamin (Vitamin B-12) 1,000 MCG TAB PO SCH (08:55)
[2018-03-08] MEDS: Folic Acid 1 MG TAB PO SCH (08:55)
[2018-03-08] MEDS ORDERED: Furosemide 40 MG/4 ML VIAL SLOW IVP SCH (09:00)
--- NOTE | 2018-03-08 13:35 | PRG ---
DATE OF SERVICE: 03/08/2018 SUBJECTIVE: Stuart Herrera says he is feeling better. PHYSICAL EXAMINATION: VITAL SIGNS: He is afebrile, heart rate is 100, respiratory rate is 18, oximetry is 94% on 2 liters. His dyspnea on exertion has improved dramatically. His blood pressure is 120/87. LUNGS: Remarkable for fine crackles at both bases with some decreased breath sounds at his right bas e, but it is not as decreased as I would expect. HEART: Regular rhythm. ABDOMEN: Soft. LABORATORY DATA: White count 9.4, hemoglobin 14.8, platelets 127. Sodium 135, potassium 4.9, chlori de 99, bicarbonate 26, BUN 31, and creatinine 1.31. Intake and output is negative 290. IMPRESSION: 1. Congestive heart failure. 2. Right pleural effusion ? organized. I suspect this is a chronic effusion. We will repeat a radi ograph in the morning. We might consider small volume thoracentesis with 19 gauge needle just to see to document if this is culture negative. He does not have a tremendous amount of pleural fluid on t he right.
--- NOTE | 2018-03-08 13:55 | PDOC.PN ---
- Subjective Encounter Start Date: 03/08/18 Encounter Start Time: 09:50 Patient seen and examined. No new complaints. No overnight events. SOB improving. - Objective Resuscitation Status: Resuscitation Status FULL:Full Resuscitation MAR Reviewed: Yes Vital Signs & Weight: Vital Signs (12 hours) Temp Pulse Pulse Pulse Resp BP BP 03/08/18 12:19 105 H 113 H 120/87 151/94 H 03/08/18 11:40 98.5 F 100 18 03/08/18 11:17 101 H 16 03/08/18 08:27 98.5 F 106 H 18 03/08/18 08:00 98.5 F 106 H 18 03/08/18 07:08 92 12 03/08/18 06:55 03/08/18 06:53 92 12 03/08/18 04:00 98.5 F 98 20 03/08/18 02:39 101 H 24 H BP Pulse Ox Pulse Ox Pulse Ox 03/08/18 12:19 91 L 91 L 03/08/18 11:40 136/76 94 L 03/08/18 11:17 03/08/18 08:27 133/76 92 L 03/08/18 08:00 03/08/18 07:08 03/08/18 06:55 92 L 03/08/18 06:53 03/08/18 04:00 127/75 94 L 03/08/18 02:39 91 L Weight Weight 211 lb 6 oz I&O: 03/07/18 03/08/18 03/09/18 06:59 06:59 06:59 Intake Total 1045 960 Output Total 1150 1250 Balance -105 -290 Result Diagrams: 03/08/18 04:10 03/08/18 04:10 EKG Reviewed by me: Yes (Tele SR, 7 beats of SVT earlier) Phys Exam - Physical Examination Constitutional: NAD Respiratory: no rales B/L rhonchi with scat wheezing Cardiovascular: RRR, no rub Gastrointestinal: soft, non-tender, positive bowel sounds Musculoskeletal: edema present (improving) Neurological: moves all 4 limbs Psychiatric: A&O x 3 Dx/Plan - Plan continue antibiotics, out of bed/ambulate, DVT proph w/SCDs IMPRESSION AND PLAN: 1. Acute hypoxic respiratory failure secondary to congestive heart failure exacerbation - improving 2. 7 beats of SVT 3. Acute on chronic systolic heart failure exacerbation - EF 40-45% this admision/Chest pain with elevated troponins - prob due to demand ischemia 4. Coronary artery disease, status post coronary artery bypass grafting / Severe mitral regurgitation, status post mitral ring annuloplasty 5. GA due to diuretics - improving 6. History of gastrointestinal bleeding, on aspirin. 7. Ongoing tobacco abuse. 8. Cannabis abuse. 9. Chronic obstructive pulmonary disease with chronic obstructive pulmonary disease exacerbation. 10. Hyperlipidemia. 11. Moderate aortic insufficiency. PLAN: * Cont Antibiotics/Steroids * Cont Lasix 40 mg daily * AM labs * Cardio/Pulm following * Cont current meds as below * Repeat CXR in AM * Home O2 eval in AM * Change ASA to 81 mg * Add low dose Cardizem for SVT Review of Systems - Review of Systems Respiratory: SOB with Excertion. negative: Cough, Dry, Shortness of Breath, Hemoptysis, Pleuritic Pain, Sputum, Wheezing Cardiovascular: negative: chest pain, palpitations, orthopnea, paroxysmal nocturnal dyspnea, edema, light headedness, other Gastrointestinal: negative: Nausea, Vomiting, Abdominal Pain, Diarrhea, Constipation, Melena, Hematochezia, Other - Medications/Allergies Allergies/Adverse Reactions: Allergies Allergy/AdvReac Type Severity Reaction Status Date / Time Penicillins Allergy Verified 03/06/18 06:20 Medications: Current Medications Acetaminophen (Tylenol) 650 mg PO Q4H PRN PRN Reason: Headache/Fever or Pain Hydrocodone Bitart/Acetaminophen ([place] 5/325) 1 tab PO Q6H PRN PRN Reason: Moderate Pain (4-6) Albuterol/Ipratropium (Duoneb) 3 ml NEB [id number] [facility] Last Admin: 03/08/18 11:17 Dose: 3 ml Albuterol/Ipratropium (Duoneb) 3 ml NEB Q2H PRN PRN Reason: SOB &/or Wheezing Aspirin (Aspirin) 325 mg PO QAM-WM [facility] Last Admin: 03/08/18 08:48 Dose: 325 mg Cyanocobalamin (Vitamin B-12) 1,000 mcg PO DAILY [facility] Last Admin: 03/08/18 08:55 Dose: 1,000 mcg Docusate Sodium (Colace) 100 mg PO BID [facility] Last Admin: 03/08/18 08:48 Dose: 100 mg Doxycycline Hyclate (Vibramycin) 100 mg PO BID [facility] Last Admin: 03/08/18 08:48 Dose: 100 mg Famotidine (Pepcid) 20 mg PO BID [facility] Last Admin: 03/08/18 08:48 Dose: 20 mg Fentanyl (Sublimaze) 25 mcg SLOW IVP Q4H PRN PRN Reason: Severe Pain (7-10) Folic Acid (Folvite) 1 mg PO DAILY [facility] Last Admin: 03/08/18 08:55 Dose: 1 mg Furosemide (Lasix) 40 mg SLOW IVP DAILY [facility] Last Admin: 03/08/18 08:48 Dose: 40 mg Hydralazine HCl (Apresoline) 10 mg SLOW IVP Q4H PRN PRN Reason: SBP Greater Than 180 Ceftriaxone Sodium 1 gm/ (Syringe 0.4 ml/ Sterile Water) 10 mls @ 120 mls/hr SLOW IVP 1999 [facility] Last Admin: 03/07/18 20:54 Dose: 10 mls Lorazepam (Ativan) 0.5 mg PO Q6H PRN PRN Reason: Anxiety Methylprednisolone Sodium Succinate (Solu-Medrol) 20 mg IVP Q8HR [facility] Last Admin: 03/08/18 13:36 Dose: 20 mg Mometasone Furoate/Formoterol Fumar (Dulera 200 Mcg/5 Mcg Inhaler) 2 puff INH BID-RT [facility] Last Admin: 03/08/18 07:08 Dose: 2 puff Nitroglycerin (Nitrostat) 0.4 mg PO Q5MIN PRN PRN Reason: Chest Pain Ondansetron HCl (Zofran) 4 mg IVP Q6H PRN PRN Reason: Nausea/Vomiting Ondansetron HCl (Zofran Odt) 4 mg PO Q6H PRN PRN Reason: Nausea/Vomiting Senna (Senokot) 2 tab PO HSPRN PRN PRN Reason: Constipation Sodium Chloride (Flush - Normal Saline) 10 ml IVF PRN PRN PRN Reason: Saline Flush Last Admin: 03/07/18 20:54 Dose: 10 ml
--- NOTE | 2018-03-08 15:45 | PDOC.CTH ---
Cardiology Progress Note - Subjective His breathing is better. He continues to diurese. - Objective Vital Signs Temp Pulse Pulse Pulse Resp BP BP 03/08/18 15:12 97.4 F L 84 18 03/08/18 12:19 105 H 113 H 120/87 151/94 H 03/08/18 11:40 98.5 F 100 18 03/08/18 11:17 101 H 16 03/08/18 08:27 98.5 F 106 H 18 03/08/18 08:00 98.5 F 106 H 18 03/08/18 07:08 92 12 03/08/18 06:55 03/08/18 06:53 92 12 03/08/18 04:00 98.5 F 98 20 BP Pulse Ox Pulse Ox Pulse Ox 03/08/18 15:12 131/72 93 L 03/08/18 12:19 91 L 91 L 03/08/18 11:40 136/76 94 L 03/08/18 11:17 03/08/18 08:27 133/76 92 L 03/08/18 08:00 03/08/18 07:08 03/08/18 06:55 92 L 03/08/18 06:53 03/08/18 04:00 127/75 94 L Weight 211 lb 6 oz 03/07/18 03/08/18 03/09/18 06:59 06:59 06:59 Intake Total 1045 960 Output Total 1150 1250 Balance -105 -290 - Physical Examination General/Neuro: alert & oriented x3, NAD Neck: no JVD present Lungs: unlabored respirations, other: (Crackles at bases, right base dull.) Heart: RRR Abdomen: NT/ND Extremities: + edema B (no edema.) - Telemetry Telemetry Rhythm: NSR - Labs Result Diagrams: 03/08/18 04:10 03/08/18 04:10 Troponin/CKMB CK-MB (CK-2) 8.7 ng/mL (0-6.6) H* 03/06/18 05:08 Troponin I 0.124 ng/mL (< 0.028) H 03/06/18 05:08 - Assessment/Plan 1. Acute on chronic systolic heart failure 2. CAD 3. s/p CABG x 5 in 2009 and mitral valvuloplasty 4. Possible pneumonia 5. Non compliance. 7. COPD. 8. Pleural effusion. 9. Non sustained SVT,. 8 beat run. PLAN: - Switch to PO lasix. - Will start low dose BB and ACEI. - BB for non sustained SVT - Continue other meds.
[2018-03-08] MEDS: Carvedilol 3.125 MG TAB PO SCH (17:17)
[2018-03-08] MEDS: cefTRIAXone\\ROCEPHIN 1 GM, Syringe 0.4 ML in Sterile Water 9.6 ML SLOW IVP SCH (20:11)
[2018-03-09 05:49] LABS: Albumin 3.6 g/dL (3.4-4.8); Anion Gap 17 mmol/L (10-20); BUN (Urea Nitrogen) 34 mg/dL (8.4-25.7); Calc. Creatinine Clearance 76 mL/min (70-130); Calcium 9.5 mg/dL (7.8-10.44); Carbon Dioxide 22 mmol/L (23-31); Chloride 101 mmol/L (98-107); Estimated GFR-MDRD 57; Glucose 105 mg/dL (80-115); Magnesium 2.4 mg/dL (1.6-2.6); Phosphorus 4.1 mg/dL (2.3-4.7); Potassium 5.1 mmol/L (3.5-5.1); Sodium 135 mmol/L (136-145)
[2018-03-09] MEDS: Mometasone/Formoterol 120 PUFF INHALER INH SCH ×2 (07:10→19:07)
[2018-03-09] MEDS: Carvedilol 3.125 MG TAB PO SCH ×2 (07:55→17:02)
[2018-03-09] MEDS: Furosemide 40 MG TAB PO SCH ×2 (07:56→12:29)
[2018-03-09] MEDS: Aspirin 81 mg Enteric Coated Tablet PO SCH (07:56)
[2018-03-09] MEDS: Famotidine 20 MG TAB PO SCH ×2 (07:56→21:55)
[2018-03-09] MEDS: Doxycycline 100 MG CAP PO SCH ×2 (07:56→21:55)
[2018-03-09] MEDS: Docusate 100 MG CAP PO SCH ×2 (07:56→21:55)
[2018-03-09] MEDS: Cyanocobalamin (Vitamin B-12) 1,000 MCG TAB PO SCH (07:56)
[2018-03-09] MEDS: Folic Acid 1 MG TAB PO SCH (07:56)
[2018-03-09] MEDS: Ubidecarenone 50 MG CAP PO SCH (08:58)
[2018-03-09] MEDS: Lisinopril 2.5 MG TAB PO SCH (08:58)
--- NOTE | 2018-03-09 09:21 | RAD ---
AP VIEW CHEST: HISTORY: Pleural effusion. FINDINGS: AP view chest is obtained on 03/09/18. Comparison is made to previous exam from 03/07/18. AP view chest demonstrates sternotomy wires seen. EKG leads are seen over the chest. Cardiomegaly i s seen. Pulmonary vascular congestion is seen. No evidence of effusions, pneumonia, or pneumothorax is seen. IMPRESSION: Cardiomegaly and pulmonary vascular congestion. POS: C
--- NOTE | 2018-03-09 12:35 | PRG ---
DATE OF SERVICE: 03/09/2018 SUBJECTIVE: He says he is feeling much better. He actually tends to be fairly long winded when on t he grounds, but I enjoyed talking to him. He started telling me how he was paralyzed when he was 12 after fallen off a roof, when he went up to get a baseball. He said he was paralyzed for a year and a half and recovered. Since, he started having shortness of breath problems. He said he has been un able to walk and was worried about leg weakness and wanted a neurologist. Then informed me that he i s walking up and down the small here just fine with no leg weakness. OBJECTIVE: VITAL SIGNS: He is afebrile, heart rate is 94, respiratory rate is 18, oximetry is 93 on 2 liters, b lood pressure 128/74. LUNGS: Remarkable for crackles at his bases. CARDIOVASCULAR: Regular rhythm. ABDOMEN: Soft. EXTREMITIES: Without asymmetry. IMAGING: Chest radiograph is improved compared to his admission film. IMPRESSION: Pleural effusion secondary to his cardiomyopathy. I see no indication for thoracentesis at this time. 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 I will stop his IV antibiotics a nd continue him on a few days of p.o. antibiotics. We will switch him off IV steroids to p.o. prednisone.
--- NOTE | 2018-03-09 17:45 | PDOC.PN ---
- Subjective Encounter Start Date: 03/09/18 Encounter Start Time: 10:30 Patient seen and examined. No new complaints. No overnight events. - Objective Resuscitation Status: Resuscitation Status FULL:Full Resuscitation MAR Reviewed: Yes Vital Signs & Weight: Vital Signs (12 hours) Temp Pulse Pulse Pulse Resp BP BP 03/09/18 16:00 97.8 F 83 16 03/09/18 14:36 80 16 03/09/18 13:28 03/09/18 11:44 97.5 F L 96 15 03/09/18 11:20 84 16 03/09/18 10:42 90 86 128/74 123/71 03/09/18 08:58 94 03/09/18 08:30 98.2 F 94 18 03/09/18 08:15 98.2 F 94 18 03/09/18 07:15 94 16 03/09/18 07:10 90 16 BP BP Pulse Ox 03/09/18 16:00 111/54 L 92 L 03/09/18 14:36 95 03/09/18 13:28 92 L 03/09/18 11:44 135/72 86 L 03/09/18 11:20 92 L 03/09/18 10:42 03/09/18 08:58 03/09/18 08:30 03/09/18 08:15 131/83 93 L 03/09/18 07:15 92 L 03/09/18 07:10 92 L Weight Weight 213 lb 1 oz I&O: 03/08/18 03/09/18 03/10/18 06:59 06:59 06:59 Intake Total 960 1010 300 Output Total 1250 2725 600 Balance -290 -1715 -300 Result Diagrams: 03/08/18 04:10 03/09/18 04:23 Radiology Reviewed by me: Yes (CXR - PV congestion) EKG Reviewed by me: Yes (Tele SR) Phys Exam - Physical Examination Constitutional: NAD Respiratory: no wheezing B/L rhonchi, Scat rales Cardiovascular: RRR, no rub Gastrointestinal: soft, non-tender, positive bowel sounds Musculoskeletal: edema present (improving) Neurological: non-focal Dx/Plan - Plan DVT proph w/SCDs IMPRESSION AND PLAN: 1. Acute hypoxic respiratory failure secondary to congestive heart failure exacerbation - improving 2. 7 beats of SVT - on betablockers 3. Acute on chronic systolic heart failure exacerbation - EF 40-45% this admision/Chest pain with elevated troponins - prob due to demand ischemia 4. Coronary artery disease, status post coronary artery bypass grafting / Severe mitral regurgitation, status post mitral ring annuloplasty 5. GA due to diuretics - improving 6. History of gastrointestinal bleeding 7. Ongoing tobacco abuse. 8. Cannabis abuse. 9. Chronic obstructive pulmonary disease with chronic obstructive pulmonary disease exacerbation. 10. Hyperlipidemia. 11. Moderate aortic insufficiency. PLAN: * Cont Lasix 40 mg BID * Cont Antibiotics/Steroids * AM labs * Cardio/Pulm following * Cont current meds as below * Home O2 eval in AM * Cont ACEI/Beta juliano Review of Systems - Review of Systems Respiratory: SOB with Excertion. negative: Cough, Dry, Shortness of Breath, Hemoptysis, Pleuritic Pain, Sputum, Wheezing Cardiovascular: negative: chest pain, palpitations, orthopnea, paroxysmal nocturnal dyspnea, edema, light headedness, other - Medications/Allergies Allergies/Adverse Reactions: Allergies Allergy/AdvReac Type Severity Reaction Status Date / Time Penicillins Allergy Verified 03/06/18 06:20 Medications: Current Medications Acetaminophen (Tylenol) 650 mg PO Q4H PRN PRN Reason: Headache/Fever or Pain Hydrocodone Bitart/Acetaminophen ([place] 5/325) 1 tab PO Q6H PRN PRN Reason: Moderate Pain (4-6) Albuterol/Ipratropium (Duoneb) 3 ml NEB [id number] [facility] Last Admin: 03/09/18 14:36 Dose: 3 ml Albuterol/Ipratropium (Duoneb) 3 ml NEB Q2H PRN PRN Reason: SOB &/or Wheezing Aspirin (Ecotrin) 81 mg PO DAILY [facility] Last Admin: 03/09/18 07:56 Dose: 81 mg Atorvastatin Calcium (Lipitor) 40 mg PO HS [facility] Carvedilol (Coreg) 3.125 mg PO BID-[facility] Last Admin: 03/09/18 17:02 Dose: 3.125 mg Coenzyme Q10 (Coenzyme Q10) 200 mg PO DAILY [facility] Last Admin: 03/09/18 08:58 Dose: 200 mg Cyanocobalamin (Vitamin B-12) 1,000 mcg PO DAILY [facility] Last Admin: 03/09/18 07:56 Dose: 1,000 mcg Docusate Sodium (Colace) 100 mg PO BID [facility] Last Admin: 03/09/18 07:56 Dose: 100 mg Doxycycline Hyclate (Vibramycin) 100 mg PO BID [facility] Last Admin: 03/09/18 07:56 Dose: 100 mg Famotidine (Pepcid) 20 mg PO BID [facility] Last Admin: 03/09/18 07:56 Dose: 20 mg Fentanyl (Sublimaze) 25 mcg SLOW IVP Q4H PRN PRN Reason: Severe Pain (7-10) Folic Acid (Folvite) 1 mg PO DAILY [facility] Last Admin: 03/09/18 07:56 Dose: 1 mg Furosemide (Lasix) 40 mg PO 0900,1400 [facility] Last Admin: 03/09/18 12:29 Dose: 40 mg Hydralazine HCl (Apresoline) 10 mg SLOW IVP Q4H PRN PRN Reason: SBP Greater Than 180 Lisinopril (Zestril) 1.25 mg PO DAILY [facility] Last Admin: 03/09/18 08:58 Dose: 1.25 mg Lorazepam (Ativan) 0.5 mg PO Q6H PRN PRN Reason: Anxiety Mometasone Furoate/Formoterol Fumar (Dulera 200 Mcg/5 Mcg Inhaler) 2 puff INH BID-RT [facility] Last Admin: 03/09/18 07:10 Dose: 2 puff Nitroglycerin (Nitrostat) 0.4 mg PO Q5MIN PRN PRN Reason: Chest Pain Ondansetron HCl (Zofran) 4 mg IVP Q6H PRN PRN Reason: Nausea/Vomiting Ondansetron HCl (Zofran Odt) 4 mg PO Q6H PRN PRN Reason: Nausea/Vomiting Prednisone (Prednisone) 40 mg PO QAM-WM [facility] Senna (Senokot) 2 tab PO HSPRN PRN PRN Reason: Constipation Sodium Chloride (Flush - Normal Saline) 10 ml IVF PRN PRN PRN Reason: Saline Flush Last Admin: 03/07/18 20:54 Dose: 10 ml
[2018-03-09] MEDS: Atorvastatin Calcium 40 MG TAB PO SCH (21:55)
[2018-03-10 05:15] LABS: #Lymphocytes 1.5 thou/uL (1.20-3.40); #Monocytes 0.8 thou/uL (0.11-0.59); #Neutrophils 4.9 thou/uL (1.40-6.50); %Basophils 0.4 % (0.0-1.0); %Eosinophils 0.3 % (0.0-10.0); %Lymphocytes 20.4 % (21.0-51.0); %Monocytes 11.1 % (0.0-10.0); %Neutrophils 67.9 % (42.0-75.0); Hemoglobin 14.5 g/dL (14.0-18.0); Mean Corpuscular HGB CONC 32.5 g/dL (32.0-36.0); Mean Corpuscular Hemoglobin 32.8 pg (27.0-31.0); Mean Platelet Volume 9.8 fL (7.4-10.4); Platelet Count 126 thou/uL (130-400); RBC Distribution Width 14.4 % (11.5-14.5); Red Blood Cell (RBC) Count 4.44 mill/uL (4.70-6.10); White Blood Cell (WBC) Count 7.2 thou/uL (4.8-10.8)
[2018-03-10 05:41] LABS: Albumin 3.6 g/dL (3.4-4.8); Anion Gap 16 mmol/L (10-20); BUN (Urea Nitrogen) 38 mg/dL (8.4-25.7); Calc. Creatinine Clearance 81 mL/min (70-130); Calcium 9.2 mg/dL (7.8-10.44); Carbon Dioxide 27 mmol/L (23-31); Chloride 97 mmol/L (98-107); Estimated GFR-MDRD 61; Glucose 86 mg/dL (80-115); Magnesium 2.5 mg/dL (1.6-2.6); Phosphorus 4.2 mg/dL (2.3-4.7); Potassium 4.6 mmol/L (3.5-5.1); Sodium 135 mmol/L (136-145)
[2018-03-10] MEDS: Mometasone/Formoterol 120 PUFF INHALER INH SCH ×2 (07:26→19:19)
[2018-03-10] MEDS: predniSONE 20 MG TAB PO SCH (08:27)
[2018-03-10] MEDS: Carvedilol 3.125 MG TAB PO SCH ×2 (08:27→17:38)
[2018-03-10] MEDS: Ubidecarenone 50 MG CAP PO SCH (08:27)
[2018-03-10] MEDS: Doxycycline 100 MG CAP PO SCH ×2 (08:28→21:52)
[2018-03-10] MEDS: Folic Acid 1 MG TAB PO SCH (08:28)
[2018-03-10] MEDS: Docusate 100 MG CAP PO SCH ×2 (08:28→21:52)
[2018-03-10] MEDS: Lisinopril 2.5 MG TAB PO SCH (08:28)
[2018-03-10] MEDS: Cyanocobalamin (Vitamin B-12) 1,000 MCG TAB PO SCH (08:28)
[2018-03-10] MEDS: Aspirin 81 mg Enteric Coated Tablet PO SCH (08:28)
[2018-03-10] MEDS: Furosemide 40 MG TAB PO SCH ×2 (08:28→15:23)
[2018-03-10] MEDS: Famotidine 20 MG TAB PO SCH ×2 (11:44→21:52)
--- NOTE | 2018-03-10 16:43 | PRG ---
DATE OF SERVICE: 03/10/2018 SUBJECTIVE: Mr. Herrera says he does not feel as well as he did yesterday. OBJECTIVE: VITAL SIGNS: This morning, sitting, he had blood pressure in the 90s, heart rate in the 70s, respira tory rates in the teens. LUNGS: Remarkable for wheezes today. HEART: Regular rhythm. ABDOMEN: Soft and nontender. LABORATORY DATA: White count 7.2, hemoglobin 14.5, platelets 126. Sodium 135, potassium 4.6, chlori de 97, bicarbonate 27, BUN 38, creatinine 1.18. IMPRESSION: 1. Congestive heart failure, clinically improving, although he may be a little bit on the dry side. We will hold this afternoon Lasix. 2. ?obstructive lung disease versus reactive airways. We will give him a dose of steroids today and a dose tomorrow and see how he does. I suspect he will feel better by the morning. 3. Chronic Afrin use. He relayed that to me. We will start him on nasal ipratropium, which will he lp with his sinus congestion and also humidify his oxygen. I will see him again tomorrow.
[2018-03-10] MEDS: Atorvastatin Calcium 40 MG TAB PO SCH (21:52)
--- NOTE | 2018-03-10 22:02 | PDOC.PN ---
- Subjective Encounter Start Date: 03/10/18 Encounter Start Time: 19:00 Patient seen and examined. No new complaints. No overnight events. Feels gen weak. Was lightheaded earlier. - Objective Resuscitation Status: Resuscitation Status FULL:Full Resuscitation MAR Reviewed: Yes Vital Signs & Weight: Vital Signs (12 hours) Temp Pulse Resp BP Pulse Ox 03/10/18 19:19 90 20 94 L 03/10/18 16:00 98.1 F 84 24 H 90/57 L 92 L 03/10/18 13:59 79 16 95 03/10/18 12:00 97.6 F 70 20 96/61 93 L 03/10/18 11:12 74 16 Weight Weight 211 lb 1.6 oz I&O: 03/09/18 03/10/18 03/11/18 06:59 06:59 06:59 Intake Total 1010 630 760 Output Total 2725 1750 1000 Balance -1715 -1120 -240 Result Diagrams: 03/10/18 03:58 03/10/18 03:58 Additional Labs: Accuchecks 03/10/18 03/10/18 16:56 10:37 POC Glucose 121 H 123 H EKG Reviewed by me: Yes (Tele SR) Phys Exam - Physical Examination Constitutional: NAD Respiratory: no wheezing, no rhonchi Cardiovascular: RRR, no rub Gastrointestinal: soft, non-tender, positive bowel sounds Musculoskeletal: no edema Neurological: moves all 4 limbs Dx/Plan - Plan continue antibiotics, out of bed/ambulate, DVT proph w/SCDs IMPRESSION: 1. Acute hypoxic respiratory failure secondary to congestive heart failure exacerbation - improving 2. 7 beats of SVT - started on betablockers 3. Acute on chronic systolic heart failure exacerbation - EF 40-45% this admision/Chest pain with elevated troponins - prob due to demand ischemia 4. Coronary artery disease, status post coronary artery bypass grafting / Severe mitral regurgitation, status post mitral ring annuloplasty 5. GA due to diuretic - Cr improving 6. History of gastrointestinal bleeding 7. Ongoing tobacco abuse. 8. Cannabis abuse. 9. Chronic obstructive pulmonary disease with chronic obstructive pulmonary disease exacerbation. 10. Hyperlipidemia. 11. Moderate aortic insufficiency. PLAN: * Cardiology/Pulm following * Cont current meds as below * Cont nebs/ACEI/BB/diuretics * Started on steroids * Home O2 eval at dc * dc in 1-2 days once cleared by consultants Review of Systems - Review of Systems Constitutional: negative: fever, chills, sweats, weakness, malaise, other Respiratory: SOB with Excertion Cardiovascular: negative: chest pain, palpitations, orthopnea, paroxysmal nocturnal dyspnea, edema, light headedness, other Gastrointestinal: negative: Nausea, Vomiting, Abdominal Pain, Diarrhea, Constipation, Melena, Hematochezia, Other - Medications/Allergies Allergies/Adverse Reactions: Allergies Allergy/AdvReac Type Severity Reaction Status Date / Time Penicillins Allergy Verified 03/06/18 06:20 Medications: Current Medications Acetaminophen (Tylenol) 650 mg PO Q4H PRN PRN Reason: Headache/Fever or Pain Hydrocodone Bitart/Acetaminophen ([place] 5/325) 1 tab PO Q6H PRN PRN Reason: Moderate Pain (4-6) Albuterol/Ipratropium (Duoneb) 3 ml NEB [id number] COUNTS INCLUDE 234 BEDS AT THE [facility] Last Admin: 03/10/18 19:19 Dose: 3 ml Albuterol/Ipratropium (Duoneb) 3 ml NEB Q2H PRN PRN Reason: SOB &/or Wheezing Aspirin (Ecotrin) 81 mg PO DAILY COUNTS INCLUDE 234 BEDS AT THE [facility] Last Admin: 03/10/18 08:28 Dose: 81 mg Atorvastatin Calcium (Lipitor) 40 mg PO HS COUNTS INCLUDE 234 BEDS AT THE [facility] Last Admin: 03/10/18 21:52 Dose: 40 mg Carvedilol (Coreg) 3.125 mg PO BID-[facility] Last Admin: 03/10/18 17:38 Dose: Not Given Coenzyme Q10 (Coenzyme Q10) 200 mg PO DAILY COUNTS INCLUDE 234 BEDS AT THE [facility] Last Admin: 03/10/18 08:27 Dose: 200 mg Cyanocobalamin (Vitamin B-12) 1,000 mcg PO DAILY COUNTS INCLUDE 234 BEDS AT THE [facility] Last Admin: 03/10/18 08:28 Dose: 1,000 mcg Docusate Sodium (Colace) 100 mg PO BID COUNTS INCLUDE 234 BEDS AT THE [facility] Last Admin: 03/10/18 21:52 Dose: Not Given Doxycycline Hyclate (Vibramycin) 100 mg PO BID COUNTS INCLUDE 234 BEDS AT THE [facility] Last Admin: 03/10/18 21:52 Dose: 100 mg Famotidine (Pepcid) 20 mg PO BID COUNTS INCLUDE 234 BEDS AT THE [facility] Last Admin: 03/10/18 21:52 Dose: 20 mg Fentanyl (Sublimaze) 25 mcg SLOW IVP Q4H PRN PRN Reason: Severe Pain (7-10) Folic Acid (Folvite) 1 mg PO DAILY COUNTS INCLUDE 234 BEDS AT THE [facility] Last Admin: 03/10/18 08:28 Dose: 1 mg Furosemide (Lasix) 40 mg PO 0900,1400 COUNTS INCLUDE 234 BEDS AT THE [facility] Last Admin: 03/10/18 15:23 Dose: Not Given Hydralazine HCl (Apresoline) 10 mg SLOW IVP Q4H PRN PRN Reason: SBP Greater Than 180 Ipratropium [place] (Atrovent 0.03%) 1 ml EA NARE BID COUNTS INCLUDE 234 BEDS AT THE [facility] Lisinopril (Zestril) 1.25 mg PO DAILY COUNTS INCLUDE 234 BEDS AT THE [facility] Last Admin: 03/10/18 08:28 Dose: 1.25 mg Lorazepam (Ativan) 0.5 mg PO Q6H PRN PRN Reason: Anxiety Methylprednisolone Sodium Succinate (Solu-Medrol) 80 mg IVP DAILY COUNTS INCLUDE 234 BEDS AT THE [facility] Mometasone Furoate/Formoterol Fumar (Dulera 200 Mcg/5 Mcg Inhaler) 2 puff INH BID-RT COUNTS INCLUDE 234 BEDS AT THE [facility] Last Admin: 03/10/18 19:19 Dose: 2 puff Nitroglycerin (Nitrostat) 0.4 mg PO Q5MIN PRN PRN Reason: Chest Pain Ondansetron HCl (Zofran) 4 mg IVP Q6H PRN PRN Reason: Nausea/Vomiting Ondansetron HCl (Zofran Odt) 4 mg PO Q6H PRN PRN Reason: Nausea/Vomiting Prednisone (Prednisone) 40 mg PO QAM-WM COUNTS INCLUDE 234 BEDS AT THE [facility] Last Admin: 03/10/18 08:27 Dose: 40 mg Senna (Senokot) 2 tab PO HSPRN PRN PRN Reason: Constipation Sodium Chloride (Flush - Normal Saline) 10 ml IVF PRN PRN PRN Reason: Saline Flush Last Admin: 03/07/18 20:54 Dose: 10 ml
[2018-03-11] MEDS: Mometasone/Formoterol 120 PUFF INHALER INH SCH ×2 (06:56→19:11)
[2018-03-11] MEDS: Carvedilol 3.125 MG TAB PO SCH ×2 (08:15→17:10)
[2018-03-11] MEDS: predniSONE 20 MG TAB PO SCH (08:16)
[2018-03-11] MEDS: Cyanocobalamin (Vitamin B-12) 1,000 MCG TAB PO SCH (08:16)
[2018-03-11] MEDS: Aspirin 81 mg Enteric Coated Tablet PO SCH (08:16)
[2018-03-11] MEDS: Doxycycline 100 MG CAP PO SCH ×2 (08:17→20:55)
[2018-03-11] MEDS: Famotidine 20 MG TAB PO SCH ×2 (08:17→20:55)
[2018-03-11] MEDS: Docusate 100 MG CAP PO SCH ×2 (08:17→20:55)
[2018-03-11] MEDS: Furosemide 40 MG TAB PO SCH ×2 (08:18→15:05)
[2018-03-11] MEDS: Folic Acid 1 MG TAB PO SCH (08:18)
[2018-03-11] MEDS: guaiFENesin ER 600 MG TAB PO SCH ×2 (08:19→20:54)
[2018-03-11] MEDS: Lisinopril 2.5 MG TAB PO SCH (08:19)
[2018-03-11] MEDS: Ubidecarenone 50 MG CAP PO SCH (08:20)
[2018-03-11] MEDS: Ipratropium Bromide 0.03% Nasal Inhaler 30 ml Bottle EA NARE SCH ×2 (08:28→10:17)
[2018-03-11] MEDS ORDERED: methylPREDNISolone Sod Succ/PF 125 MG/2 ML VIAL IVP SCH (09:00)
--- NOTE | 2018-03-11 13:42 | PDOC.PN ---
- Subjective Encounter Start Date: 03/11/18 Encounter Start Time: 11:00 Subjective: pt up in chair no compalins - Objective Resuscitation Status: Resuscitation Status FULL:Full Resuscitation Vital Signs & Weight: Vital Signs (12 hours) Temp Pulse Resp BP BP BP Pulse Ox 03/11/18 12:59 98 F 76 18 107/57 L 96 03/11/18 11:05 84 12 03/11/18 08:10 99.2 F 84 16 128/70 97 03/11/18 06:56 80 12 03/11/18 06:42 80 12 03/11/18 04:00 97.8 F 78 20 104/55 L 95 03/11/18 02:39 89 20 95 Weight Weight 213 lb 12.8 oz I&O: 03/10/18 03/11/18 03/12/18 06:59 06:59 06:59 Intake Total 630 1210 Output Total 1750 2175 Balance -1120 -965 Result Diagrams: 03/10/18 03:58 03/10/18 03:58 Additional Labs: Accuchecks 03/10/18 16:56 POC Glucose 121 H Phys Exam - Physical Examination HEENT: PERRLA, moist MMs, sclera anicteric, TM's clear, oral pharynx no lesions , 2+ tonsils Neck: no nodes, no JVD, supple, full ROM Respiratory: no wheezing, no rales, no rhonchi, wheezing present, clear to auscultation bilateral Cardiovascular: RRR, no significant murmur, no rub, gallop, irregular Gastrointestinal: soft, non-tender, no distention, positive bowel sounds mild erythema noted to bilateral lower ext Dx/Plan - Plan IMPRESSION: 1. Acute hypoxic respiratory failure secondary to congestive heart failure exacerbation - improving 2. 7 beats of SVT - started on betablockers 3. Acute on chronic systolic heart failure exacerbation - EF 40-45% this admision/Chest pain with elevated troponins - prob due to demand ischemia 4. Coronary artery disease, status post coronary artery bypass grafting / Severe mitral regurgitation, status post mitral ring annuloplasty 5. GA due to diuretic - Cr improving 6. History of gastrointestinal bleeding 7. Ongoing tobacco abuse. 8. Cannabis abuse. 9. Chronic obstructive pulmonary disease with chronic obstructive pulmonary disease exacerbation. 10. Hyperlipidemia. 11. Moderate aortic insufficiency. PLAN: * Cardiology/Pulm following * Cont current meds as below * Cont nebs/ACEI/BB/diuretics * pt's iv steroids changed to po, spoke with pulmonary. * Home O2 eval at dc * will discharge in am per consultants Review of Systems - Review of Systems Eyes: negative: Pain, Vision Change, Conjunctivae Inflammation, Eyelid Inflammation, Redness, Other ENT: negative: Ear Pain, Ear Discharge, Nose Pain, Nose Discharge, Nose Congestion, Mouth Pain, Mouth Swelling, Throat Pain, Throat Swelling, Other Respiratory: negative: Cough, Dry, Shortness of Breath, Hemoptysis, SOB with Excertion, Pleuritic Pain, Sputum, Wheezing Cardiovascular: negative: chest pain, palpitations, orthopnea, paroxysmal nocturnal dyspnea, edema, light headedness, other Gastrointestinal: negative: Nausea, Vomiting, Abdominal Pain, Diarrhea, Constipation, Melena, Hematochezia, Other Genitourinary: negative: Dysuria, Frequency, Incontinence, Hematuria, Retention , Other - Medications/Allergies Allergies/Adverse Reactions: Allergies Allergy/AdvReac Type Severity Reaction Status Date / Time Penicillins Allergy Verified 03/06/18 06:20 Medications: Current Medications Acetaminophen (Tylenol) 650 mg PO Q4H PRN PRN Reason: Headache/Fever or Pain Hydrocodone Bitart/Acetaminophen ([place] 5/325) 1 tab PO Q6H PRN PRN Reason: Moderate Pain (4-6) Albuterol/Ipratropium (Duoneb) 3 ml NEB [id number] [facility] Last Admin: 03/11/18 11:05 Dose: 3 ml Albuterol/Ipratropium (Duoneb) 3 ml NEB Q2H PRN PRN Reason: SOB &/or Wheezing Aspirin (Ecotrin) 81 mg PO DAILY [facility] Last Admin: 03/11/18 08:16 Dose: 81 mg Atorvastatin Calcium (Lipitor) 40 mg PO HS [facility] Last Admin: 03/10/18 21:52 Dose: 40 mg Carvedilol (Coreg) 3.125 mg PO BID-WM [facility] Last Admin: 03/11/18 08:15 Dose: 3.125 mg Coenzyme Q10 (Coenzyme Q10) 200 mg PO DAILY [facility] Last Admin: 03/11/18 08:20 Dose: 200 mg Cyanocobalamin (Vitamin B-12) 1,000 mcg PO DAILY [facility] Last Admin: 03/11/18 08:16 Dose: 1,000 mcg Docusate Sodium (Colace) 100 mg PO BID [facility] Last Admin: 03/11/18 08:17 Dose: Not Given Doxycycline Hyclate (Vibramycin) 100 mg PO BID [facility] Last Admin: 03/11/18 08:17 Dose: 100 mg Enoxaparin Sodium (Lovenox) 40 mg SC 2100 SUSANNE Famotidine (Pepcid) 20 mg PO BID [facility] Last Admin: 03/11/18 08:17 Dose: 20 mg Fentanyl (Sublimaze) 25 mcg SLOW IVP Q4H PRN PRN Reason: Severe Pain (7-10) Folic Acid (Folvite) 1 mg PO DAILY [facility] Last Admin: 03/11/18 08:18 Dose: 1 mg Furosemide (Lasix) 40 mg PO 0900,1400 [facility] Last Admin: 03/11/18 08:18 Dose: 40 mg Guaifenesin (Mucinex) 600 mg PO Q12HR [facility] Last Admin: 03/11/18 08:19 Dose: 600 mg Hydralazine HCl (Apresoline) 10 mg SLOW IVP Q4H PRN PRN Reason: SBP Greater Than 180 Ipratropium [place] (Atrovent 0.03%) 1 ml EA NARE BID [facility] Last Admin: 03/11/18 10:17 Dose: 1 spr Lisinopril (Zestril) 1.25 mg PO DAILY [facility] Last Admin: 03/11/18 08:19 Dose: 1.25 mg Lorazepam (Ativan) 0.5 mg PO Q6H PRN PRN Reason: Anxiety Mometasone Furoate/Formoterol Fumar (Dulera 200 Mcg/5 Mcg Inhaler) 2 puff INH BID-RT [facility] Last Admin: 03/11/18 06:56 Dose: 2 puff Nitroglycerin (Nitrostat) 0.4 mg PO Q5MIN PRN PRN Reason: Chest Pain Ondansetron HCl (Zofran) 4 mg IVP Q6H PRN PRN Reason: Nausea/Vomiting Ondansetron HCl (Zofran Odt) 4 mg PO Q6H PRN PRN Reason: Nausea/Vomiting Prednisone (Prednisone) 40 mg PO QAM-WM [facility] Last Admin: 03/11/18 08:16 Dose: 40 mg Senna (Senokot) 2 tab PO HSPRN PRN PRN Reason: Constipation Sodium Chloride (Flush - Normal Saline) 10 ml IVF PRN PRN PRN Reason: Saline Flush Last Admin: 03/11/18 08:24 Dose: 10 ml
--- NOTE | 2018-03-11 17:04 | PRG ---
DATE OF SERVICE: 03/11/2018 SUBJECTIVE: Mr. Herrera says he is feeling better. PHYSICAL EXAMINATION: GENERAL: He still has faint wheezes, but he is improved compared to yesterday. VITAL SIGNS: He is afebrile, heart rate is 77, respiratory rate is 18, oximetry is 94% and blood pre ssure 110/67. LUNGS: Remarkable for faint wheezes. HEART: Regular rhythm. ABDOMEN: Soft. LABORATORY DATA: No new lab today. IMPRESSION: 1. Chronic obstructive pulmonary disease with bronchospasm. 2. Congestive heart failure. 3. Daily marijuana use. Became tearful when he was talking about trying to find a substitute for hi s marijuana. We will continue with supportive care. Switch him to p.o. steroids today.
[2018-03-11] MEDS: Atorvastatin Calcium 40 MG TAB PO SCH (20:55)
[2018-03-11] MEDS ORDERED: Enoxaparin Sodium 40 MG/0.4 ML SYRINGE SC SCH (21:00)
[2018-03-12 06:09] LABS: Anion Gap 15 mmol/L (10-20); BUN (Urea Nitrogen) 35 mg/dL (8.4-25.7); Calc. Creatinine Clearance 85 mL/min (70-130); Calcium 9.1 mg/dL (7.8-10.44); Carbon Dioxide 29 mmol/L (23-31); Chloride 96 mmol/L (98-107); Estimated GFR-MDRD 65; Glucose 103 mg/dL (80-115); Sodium 136 mmol/L (136-145)
[2018-03-12] MEDS: Mometasone/Formoterol 120 PUFF INHALER INH SCH (06:45)
[2018-03-12] MEDS ORDERED: predniSONE 20 MG TAB PO SCH (08:00)
[2018-03-12] MEDS: Ipratropium Bromide 0.03% Nasal Inhaler 30 ml Bottle EA NARE SCH (09:28)
[2018-03-12] MEDS: Lisinopril 2.5 MG TAB PO SCH (09:29)
[2018-03-12] MEDS: Ubidecarenone 50 MG CAP PO SCH (09:30)
[2018-03-12] MEDS: Carvedilol 3.125 MG TAB PO SCH (09:30)
[2018-03-12] MEDS: Cyanocobalamin (Vitamin B-12) 1,000 MCG TAB PO SCH (09:31)
[2018-03-12] MEDS: Aspirin 81 mg Enteric Coated Tablet PO SCH (09:31)
[2018-03-12] MEDS: guaiFENesin ER 600 MG TAB PO SCH (09:31)
[2018-03-12] MEDS: Furosemide 40 MG TAB PO SCH (09:31)
[2018-03-12] MEDS: Famotidine 20 MG TAB PO SCH (09:31)
[2018-03-12] MEDS: Folic Acid 1 MG TAB PO SCH (09:32)
[2018-03-12] MEDS: Docusate 100 MG CAP PO SCH (09:32)
[2018-03-12] MEDS: Doxycycline 100 MG CAP PO SCH (09:32)
[2018-03-12] MEDS: predniSONE 20 MG TAB PO SCH (12:51)
--- NOTE | 2018-03-12 14:25 | PRG ---
DATE OF SERVICE: 03/12/2018 SUBJECTIVE: Mr. Stuart Herrera is tearful again today. I have given him the name of primary care gill reilly here in town and asked him to contact [facility] to see if he can be established with a psychiatri st or psychologist locally. OBJECTIVE: LUNGS: Clear today. HEART: Regular rhythm. Abdomen: Soft. IMPRESSION AND PLAN: I have written a prescription for nebulizer, prednisone and antibiotics. He wi ll follow up with me in 3-4 weeks. He is instructed not to smoke anything and will follow up with [facility] supervisor [facility] here hopefully around the same time since he is driving in from out of town.
[2018-03-12 20:02] VITALS: BP 123/71; TEMP 97.8
--- NOTE | 2018-03-13 01:52 | DIS ---
DATE OF ADMISSION: 03/05/2018 DATE OF DISCHARGE: 03/12/2018 DISCHARGE DIAGNOSES: As followin. Acute hypoxic respiratory failure most likely secondary to congestive heart failure versus chroni c obstructive pulmonary disease exacerbation. 2. Nonsustained 7 beats of ventricular tachycardia. 3. Acute kidney injury. 4. Acute on chronic obstructive pulmonary disease exacerbation. 5. Hyperlipidemia. 6. Moderate aortic insufficiency. 7. Coronary artery disease, status post bypass. 8. Severe mitral regurgitation, status post mitral ring annuloplasty. HOSPITAL COURSE: The patient is a very pleasant 67-year-old male who initially presented to the hosp ital with complaints of shortness of breath. The patient also complained about worsening lower extre mity swelling for the past few weeks. The patient also complained of orthopnea and PND. Initially, the patient was treated with mild diuretics for possible acute on chronic heart failure and also some nebulizing treatment. The patient had an echocardiogram, which indicated an EF of 40% to 45% with m oderately dilated left atrium and [id number] aortic regurgitation. The patient also was seen b y Cardiology. The patient continued to improve throughout the hospital stay. The patient also was s een by Pulmonary and was put on a few doses of IV steroids, which were transitioned to p.o. steroids. The patient continues to smoke cigarettes in addition to marijuana. The patient states that he has not been taking his medications for the past few weeks. The patient continued to progress throughou t the hospital stay and was discharged home today. The patient was put on beta blockers for nonsusta ined ventricular tachycardia. He will follow up with PCP in the next week. He will also follow up w bharat Man, Pulmonology, and Cardiology as an outpatient. DISCHARGE MEDICATIONS: As the followin. Aspirin 81 mg daily. 2. He was sent home on prednisone taper dose. 3. Dulera 2 puffs b.i.d. 4. Lisinopril 1.25 mg daily. 5. Lasix 40 mg daily. 6. Pepcid 20 mg b.i.d. 7. Colace 100 mg b.i.d. 8. Vitamin B12 of 1000 mcg daily. 9. Coreg 3.125 p.o. b.i.d. 10 Atorvastatin 40 mg daily. 11. DuoNebs. The patient also got a prescription from Pulmonary for nebulizing treatment. PHYSICAL EXAMINATION: VITAL SIGNS: Temperature of 98.0, heart rate of 78, oxygen saturation 94% on room air, blood pressur e 117/76, and respirations 18. GENERAL: He is awake, alert, and oriented x3, does not appear in any distress. CARDIOVASCULAR: S1, S2 present. No murmurs, rubs, or gallops. ABDOMEN: Soft, nontender. Bowel sounds present x2. LUNGS: Clear to auscultation. No rhonchi or wheezes noted. EXTREMITIES: No edema. DISCHARGE INSTRUCTIONS: The patient will be discharged home. He will follow up with his PCP, Cardio logy, and Pulmonary as outpatient.
== END 2018-03-12 17:55 | disposition home or self-care (01) | DRG 291 ==
LOC: ERS 15:22 → IMCU/EMU 16:54 → ERS 18:30 → 2NO 03-06 12:16
PROVIDERS: ADMIT Internal Medicine; ATTEND Internal Medicine
DX: I50.33 Acute on chronic diastolic (congestive) heart failure (principal); J96.01 Acute respiratory failure with hypoxia; I47.2 Ventricular tachycardia; N17.9 Acute kidney failure, unspecified; J44.1 Chronic obstructive pulmonary disease with (acute) exacerbation; I24.8 Other forms of acute ischemic heart disease; J91.8 Pleural effusion in other conditions classified elsewhere; E78.5 Hyperlipidemia, unspecified; Z91.128 Patient's intentional underdosing of medication regimen for other reason; I25.10 Atherosclerotic heart disease of native coronary artery without angina pectoris; Z95.1 Presence of aortocoronary bypass graft; F17.210 Nicotine dependence, cigarettes, uncomplicated; F12.10 Cannabis abuse, uncomplicated; I25.5 Ischemic cardiomyopathy; K21.9 Gastro-esophageal reflux disease without esophagitis; I08.0 Rheumatic disorders of both mitral and aortic valves; R09.81 Nasal congestion
CPT/HCPCS: 36415; 36416; 71045; 71275; 80048; 80053; 80061; 80069; 82553; 83690; 83735; 83880; 84100; 84443; 84484; 85007; 85025; 85027; 93005; 93306; 93798; 94640; 94660; 94664; 96361; 96374; 96375; 99406; A4216; J0696; J1650; J1940; J2270; J2920; J2930; J3475; J3480; J7050; J7506; J7620

== ENCOUNTER 2018-06-09 12:50 | Outpatient (CLI) | payer MEDICARE, BC ==
--- NOTE | 2018-06-09 13:16 | RAD ---
CHEST PA AND LATERAL: HISTORY: A 67-year-old male with a history of dyspnea. COMPARISON: 03/09/18. FINDINGS: There are progressive pleural and parenchymal opacity changes in the right base when compared to the prior 03/09/18 study. Heart size is normal. The left chest is stable. Stable increased interstitial markings. IMPRESSION: Increasing right pleural effusion with some minimal linear horizontal parenchymal changes in the righ t lower lung zone new from prior exam. Stable left chest. POS: OFF
== END 2018-06-09 12:51 | disposition home or self-care (01) ==
LOC: RAD 12:50
PROVIDERS: ATTEND Internal Medicine Critical Care Medicine
DX: R06.00 Dyspnea, unspecified (principal); J90 Pleural effusion, not elsewhere classified
CPT/HCPCS: 71046

== ENCOUNTER 2019-01-12 13:38 | Outpatient (CLI) | payer MEDICARE, BC ==
--- NOTE | 2019-01-12 16:21 | MRI ---
MRI OF LUMBAR SPINE WITHOUT CONTRAST: 01/12/19 HISTORY: Lumbar radiculopathy. Chronic back pain with bilateral leg symptoms including difficulty standing. COMPARISON: None. TECHNIQUE: MRI of lumbar spine is performed without intravenous gadolinium administration. Multisequential, mult iplanar imaging is performed. FINDINGS: Appropriate T1 marrow signal intensity lumbar vertebrae. Lumbar spine vertebral height is maintained. There is no fracture. End plate irregularity due to Schmorl's nodes are noted. There are type II Mod ic changes at L5-S1. Symmetric signal intensity of the psoas muscles. Exophytic T2 hyperintensity emanating from the lower pole of the right kidney compatible with a 3.4 cm cyst. The conus medullaris terminates at approximately the T12-L1 level. T12-L1: Moderate central canal stenosis secondary to a central disc protrusion with slight superior d isc extrusion. Mild to moderate right and moderate left neural foraminal narrowing. L1-L2: Moderate loss of disc space height. Generalized disc bulge, ligamentum flavum thickening and f acet hypertrophy result in mild to moderate central canal stenosis. Narrowing to both subarticular zo caro with some mass effect upon bilateral traversing L2 nerve roots. Mild right and moderate left neur al foraminal narrowing. L2-L3: Broad based disc bulge, ligamentum flavum thickening and facet hypertrophy results in severe c entral canal stenosis. Mild right and mild to moderate left neural foraminal narrowing. L3-L4: Desiccation with moderate loss of disc space height. Broad based disc bulge, ligamentum flavum thickening and facet hypertrophy result in moderate to severe central canal stenosis. Moderate to se vijay right and moderate left neural foraminal narrowing. L4-L5: Desiccation with mild to moderate loss of disc space height. Broad based disc bulge, ligamentu m flavum thickening and facet hypertrophy result in severe central canal stenosis. Asymmetric fullnes s and prominence of the right facet. Moderate bilateral foraminal narrowing. L5-S1: Desiccation with moderate loss of disc space height. There is a broad based disc bulge with re sultant mild central canal stenosis. There is narrowing of both subarticular zones, left greater than right. There is mass effect without obscuration of the traversing right S1 nerve root. Mass effect w ith partial obscuration of the traversing left S1 nerve root. Moderate to severe right and severe lef t foraminal narrowing. IMPRESSION: Degenerative changes of the lumbar spine as detailed above. POS: CHRISTELLE
== END 2019-01-12 13:39 | disposition home or self-care (01) ==
LOC: BICMRI 13:38
PROVIDERS: ATTEND Anesthesiology Pain Medicine
DX: M47.26 Other spondylosis with radiculopathy, lumbar region (principal); M48.062 Spinal stenosis, lumbar region with neurogenic claudication
CPT/HCPCS: 72148

== ENCOUNTER 2019-03-10 10:49 | Outpatient (CLI) | payer MEDICARE, BC ==
--- NOTE | 2019-03-10 11:36 | RAD ---
PA AND LATERAL CHEST: History: Dyspnea. Comparison: 06-09-18 chest radiograph, 03-05-18 CT FINDINGS: Heart size is enlarged. There are post-operative sternotomy changes. Chronic interstitial fibrotic simone ng changes are seen. There is increased opacification of the right lung base as compared to the prior examination. This would probably indicate subpulmonic effusion. Some of this could be related to steven vated hemidiaphragm but does appear somewhat progressed as compared to the prior study. There are art hritic changes of the spine. IMPRESSION: 1. Cardiomegaly with chronic interstitial fibrotic lung change. 2. Increasing opacification in the right lung base suggesting some increasing effusion. POS: [facility]
== END 2019-03-10 10:50 | disposition home or self-care (01) ==
LOC: RAD 10:49
PROVIDERS: ATTEND Internal Medicine Critical Care Medicine
DX: R06.00 Dyspnea, unspecified (principal); I51.7 Cardiomegaly; R91.8 Other nonspecific abnormal finding of lung field; J84.10 Pulmonary fibrosis, unspecified
CPT/HCPCS: 71046

== ENCOUNTER 2019-03-15 15:38 | Outpatient (CLI) | payer MEDICARE, BC ==
[2019-03-15 16:48] LABS: #Eosinphils 0.1 thou/uL (0.0-0.7); #Monocytes 0.8 thou/uL (0.11-0.59); #Neutrophils 7.5 thou/uL (1.40-6.50); %Basophils 0.3 % (0.0-1.0); %Eosinophils 0.8 % (0.0-10.0); %Lymphocytes 10.9 % (21.0-51.0); %Monocytes 8.1 % (0.0-10.0); %Neutrophils 79.9 % (42.0-75.0); Hemoglobin 14.8 g/dL (14.0-18.0); Mean Corpuscular HGB CONC 32.9 g/dL (32.0-36.0); Mean Corpuscular Hemoglobin 32.5 pg (27.0-31.0); Mean Corpuscular Volume 98.7 fL (78.0-98.0); Mean Platelet Volume 8.2 fL (7.4-10.4); Platelet Count 249 thou/uL (130-400); RBC Distribution Width 14.1 % (11.5-14.5); Red Blood Cell (RBC) Count 4.55 mill/uL (4.70-6.10); White Blood Cell (WBC) Count 9.4 thou/uL (4.8-10.8)
[2019-03-15 17:09] LABS: ALT (SGPT) 18 U/L (8-55); AST (SGOT) 23 U/L (5-34); Albumin 3.7 g/dL (3.4-4.8); Alkaline Phosphatase 100 U/L (40-150); Anion Gap 12 mmol/L (10-20); BUN (Urea Nitrogen) 8 mg/dL (8.4-25.7); Bilirubin, Total 1.2 mg/dL (0.2-1.2); Calc. Creatinine Clearance 0 mL/min (70-130); Calcium 9.8 mg/dL (7.8-10.44); Carbon Dioxide 29 mmol/L (23-31); Chloride 94 mmol/L (98-107); Estimated GFR-MDRD 90; Globulin 4.8 g/dL (2.4-3.5); Glucose 105 mg/dL (80-115); Potassium 3.9 mmol/L (3.5-5.1); Protein, Total 8.5 g/dL (5.8-8.1); Sodium 131 mmol/L (136-145)
== END 2019-03-15 15:39 | disposition home or self-care (01) ==
LOC: LAB 15:38
PROVIDERS: ATTEND Internal Medicine Cardiovascular Disease
DX: Z01.812 Encounter for preprocedural laboratory examination (principal); R93.1 Abnormal findings on diagnostic imaging of heart and coronary circulation
CPT/HCPCS: 80053; 85025

== ENCOUNTER 2019-03-24 06:12 | Inpatient (IN) | payer MEDICARE, BC ==
[2019-03-24] MEDS ORDERED: Heparin 10,000 UNITS/1 ML VIAL ONE (06:27)
[2019-03-24] MEDS ORDERED: Fentanyl 100 MCG/2 ML VIAL ONE (07:21)
[2019-03-24] MEDS ORDERED: Midazolam HCl 2 mg/2 ml Vial ONE (07:21)
[2019-03-24] MEDS ORDERED: Clopidogrel Bisulfate 300 MG TAB ONE (08:04)
[2019-03-24] MEDS ORDERED: Bivalirudin 250 MG VIAL ONE (08:04)
[2019-03-24] MEDS ORDERED: DOPamine 400 MG/D5W 250 ML 250 ML ONE (08:10)
[2019-03-24] MEDS ORDERED: Ondansetron PF 4 MG/2 ML Vial ONE (08:14)
[2019-03-24] MEDS ORDERED: Nitroglycerin 100MG/250ML BOT 250 ML ONE (08:33)
[2019-03-24] MEDS ORDERED: Nitroglycerin 0.4 MG TAB (25 Tab Bottle) SL PRN (08:56)
[2019-03-24] MEDS ORDERED: Sodium Chloride 0.9% 1,000 ML IV SCH (09:00)
[2019-03-24] MEDS ORDERED: Levalbuterol HCl 0.63 MG/3 ML NEB NEB PRN (09:34)
[2019-03-24] MEDS ORDERED: Morphine 2 MG/ML SYRINGE SLOW IVP PRN (10:09)
[2019-03-24 11:21] LABS: Actual Bicarbonate (HCO3a) 32.5 mEq/L (22-28); Base Excess (BEa) 3.7 mEq/L (-2.0 to +3.0); Calcium, Ionized 1.16 mmol/L (1.12-1.30); Carboxyhemoglobin (COHb) 6.7 gm% (0.0-3.0); Hemoglobin (Hb) 13.9 g/dL (14.0-18.0); pH, Arterial 7.29 (7.35-7.45)
[2019-03-24 11:25] LABS: CO2 Tension 69.8 mmHg (35.0-45.0)
--- NOTE | 2019-03-24 11:25 | RAD ---
Portable frontal chest radiograph: 03/24/2019 COMPARISON: 03/09/2018 HISTORY: COPD, difficulty breathing FINDINGS: Cardiac silhouette is enlarged. Midline sternotomy wires are present. There is pulmonary va scular congestion with perihilar and bibasilar interstitial prominence. There is new dense pleural and parenchymal opacity within the right perihilar region and right lung base suggesting moderate rig ht pleural effusion. Evaluation of the underlying lung parenchyma is limited and could be associated with infectious pneumonitis, aspiration, and/or passive atelectasis. IMPRESSION: Prominent cardiac silhouette with pulmonary vessel congestion and perihilar interstitial prominence. Findings may be related to pulmonary edema. Dense nonspecific right basilar opacity as above.
[2019-03-24 11:26] LABS: O2 Tension (PaO2) 58.8 mmHg (> 70.0)
[2019-03-24 11:27] LABS: Puncture Site ALINE
[2019-03-24] MEDS ORDERED: Iopamidol 370 76% 100 ML VIAL ONE (11:31)
[2019-03-24] MEDS ORDERED: Iopamidol 370 76% 50 ML VIAL FS ONE (11:31)
--- NOTE | 2019-03-24 12:16 | CON ---
DATE OF CONSULTATION: 03/24/2019 REASON FOR CONSULTATION: Respiratory distress. HISTORY OF PRESENT ILLNESS: This patient had a heart cath done as an outpatient earlier this morning and was placed in the CCU afterwards with a sheath in place. He has been short of breath and hypoxic since being moved to the CCU. The patient apparently has a history of COPD. He has seen Dr. Man while in the hospital in the past, but does not see him in the office. PAST MEDICAL HISTORY: 1. Coronary artery disease. 2. Cardiomyopathy with baseline EF of about 30%. 3. Hyperlipidemia. 4. Gastroesophageal reflux. 5. Mitral regurgitation. 6. Aortic insufficiency. 7. Mitral valve annuloplasty. 8. Testicular biopsy. 9. Chronic obstructive pulmonary disease. PAST SURGICAL HISTORY: 1. Testicular biopsy. 2. Coronary artery bypass grafting surgery. 3. Mitral valve annuloplasty. FAMILY MEDICAL HISTORY: Remarkable for no significant lung problems. SOCIAL HISTORY: The patient continues to smoke. He has been a daily smoker of tobacco and marijuana. Also, has a history of bourbon consumption. MEDICATIONS: Prior to admission, 1. Nitrostat. 2. Trazodone. 3. Lisinopril. 4. Folate. 5. Famotidine. 6. Lipitor. 7. Vitamin B12. 8. Furosemide. 9. Dulera. 10. Lisinopril. 11. Carvedilol. 12. Albuterol ipratropium nebulization solution. REVIEW OF SYSTEMS: No fever, chills, nausea, vomiting, chest pain, hemoptysis, melena, hematochezia, hematuria, or dysuria. PHYSICAL EXAMINATION: VITAL SIGNS: Pulse 95, blood pressure 85/47 on dopamine drip, O2 saturation running in the mid 80s. HEENT: Disheveled appearance, unkempt last, class 3 Mallampati airway. NECK: No adenopathy or JVD. LUNGS: Coarse rhonchi bilaterally. Diminished breath sounds, right base compared to left. CARDIOVASCULAR: S1 and S2, regular without murmur. ABDOMEN: Soft. EXTREMITIES: No clubbing, cyanosis, or edema. IMAGING STUDIES: Chest x-ray shows what appears to be a chronic right pleural effusion. LABORATORY DATA: None have been done at this point. ASSESSMENT: Post cardiac catheterization with respiratory distress. Probably a component of heart failure and chronic obstructive pulmonary disease. PLAN: 1. Try high-flow oxygen if not BiPAP. 2. Check labs. 3. Steroids, nebulization treatments. 4. We will follow. Job ID: [id number]
[2019-03-24] MEDS: methylPREDNISolone Sod Succ 40 MG VIAL IVP SCH ×3 (13:00→23:02)
[2019-03-24] MEDS: Clopidogrel Bisulfate 75 MG TAB PO SCH (13:48)
[2019-03-24] MEDS: Aspirin Chewable 81 MG TAB PO SCH (13:48)
--- NOTE | 2019-03-24 16:53 | CCL ---
SURGEON: Arnold Mcnamara M.D. INDICATION: Abnormal nuclear scan. PROCEDURE: 1. Selective coronary arteriography. 2. Left ventriculography. 3. Left heart catheterization 4. Bypass graft angiography. MARTIN injection. 5. Intracoronary nitroglycerin. 6. Stent placement in the first obtuse marginal distal to the graft insertion. The patient is brought to the [facility] and the right groin was prepped and draped in the usual manner. 1% lidocaine was infiltrated and a 6 [place] sheath was inserted into the right femoral artery. Heparin 3000 units was given. There was difficulty in negotiating the right iliac at the aorta. A right 4 along with J-wire was inserted and this was easily traversed. All future catheter exchanges were performed over a wire. The right 4 was then removed over an exchange wire for a 6 [place] angulated pigtail. This was inserted and pressures were obtained. Left ventriculogram was performed using 30 mL of contrast at 12 mL per second in an YEBOAH 30 degree projection. Pressures were obtained and a pigtail was removed over an exchange wire for a 6 [place] Judkin's left 4. This was used for left coronary arteriography and then exchanged over a wire for a 6 [place] Judkin 's right 4. This was used to opacify the right coronary artery and the obtuse marginal graft. This was directed into the left subclavian but did not engage the PALU well and so this was exchanged over a wire for a 6 [place] PAUL catheter. MARTIN injection was performed and then this was exchanged over a wire for a 6 [place] multipurpose to opacify the right coronary artery graft. Angiomax bolus and drip were given. 6 [place] right 4 guide catheter was inserted over the exchange wire. The patient began to complain of chest discomfort. He did have ST segment elevation in II and III. Pressure was in the 60s. He was given intravenous fluids as well as started on Dopamine. When pressure was in the 90s and 100s systolic range, he had resolution of the ST segment elevation. It was thought that this was due to delayed clearing of the contrast from the inferior wall due to both the right coronary artery and the right coronary artery graft being occluded. The right 4 did not appear to give adequate backup and so this was exchanged over a wire for a 6 [place] left 1 guide catheter. With a Floppy choice wire the distal vessel was cannulated. Emerge 2.5 x 15 mm balloon was used to predilate the area. This was removed and Rebel 2.25 x 12 mm stent was positioned and deployed. There was excellent result; however, significant spasm at the distal stent was present. Nitroglycerin 100 mcg was given with excellent results. The guide catheter and balloon and wire were removed. Patient was transferred to the CCU for tapering of Dopamine. RESULTS: PRESSURES: Aorta 95/49, mean of 68. Left ventricle 95/14. LEFT VENTRICULOGRAM: There was severe inferior hypokinesis with ejection fraction of 35-40%. There was mild mitral regurgitation. CORONARY ARTERIOGRAPHY: 1. Left main had a 20% stenosis. 2. The LAD had an 80% proximal stenosis. 3. The circumflex had a 90 and 99% proximal stenosis. 4. The ramus arose off the circumflex after the 90% stenosis. There was an 80% lesion in the ramus. The distal portion of the graft that was occluded could be seen. 5. The right coronary artery had a 60% acute marginal stenosis. It was totally occluded in its mid portion. BYPASS GRAFTS: 1. The MARTIN to the LAD was patent. 2. The first obtuse marginal graft was patent. There was an 80% lesion at the distal anastomosis in the upper [place] vessel. 3. The ramus (not diagonal) which was piggybacked onto the obtuse marginal graft was occluded. 4. The distal right coronary artery graft was occluded. INTERVENTION RESULTS: The initial lesion in the first obtuse margin just distal to the anastomosis was 80% and final lesion was 0%. IMPRESSION: 1. Three vessel coronary artery disease. 2. Two of four bypass grafts patent. 3. Moderate left ventricular dysfunction. 4. Mild mitral regurgitation. 5. Successful bare metal stent placed in the first obtuse marginal distal to the graft. [facility]
[2019-03-24] MEDS: Carvedilol 3.125 MG TAB PO SCH (17:34)
[2019-03-24] MEDS: DOPamine 400 MG/D5W 250 ML 250 ML IVPB SCH (17:34)
[2019-03-24] MEDS ORDERED: Mometasone/Formoterol 120 PUFF INHALER INH SCH (18:30)
[2019-03-24] MEDS: Arformoterol 15 MCG/2 ML NEB NEB SCH (19:00)
[2019-03-24] MEDS: Budesonide 0.5 MG/2 ML NEB INH SCH (19:03)
[2019-03-24] MEDS: Atorvastatin Calcium 40 MG TAB PO SCH (20:05)
--- NOTE | 2019-03-25 01:23 | CON ---
DATE OF CONSULTATION: 03/24/2019 HISTORY OF PRESENT ILLNESS: The patient is a 68-year-old male, who underwent cardiac catheterization today by Dr. Kwon. He has a known history of COPD, chronic pain, posttraumatic stress disorder. He became hypoxic and hypotensive. He was moved to the CCU. There, he was placed on BiPAP by Dr. Dooley. I currently interviewed the patient. He is resting more comfortably, not short of breath, now on high-flow nasal cannula. He reports he is feeling a little bit better today. He was having history of chronic back pain with being evaluated for possible back surgery. Otherwise, no other medical complaints. PAST MEDICAL HISTORY: Positive for COPD, aortic insufficiency, cardiomyopathy, coronary artery disease, gastroesophageal reflux disease, posttraumatic stress disorder. PAST SURGICAL HISTORY: Positive for coronary artery bypass graft, history of mitral valve repair. SOCIAL AND PERSONAL HISTORY: He continues to smoke. He does use tobacco as well as marijuana. PHYSICAL EXAMINATION: VITAL SIGNS: Blood pressure 92/60, he is on dopamine drip; respirations 24; O2 saturation 90% on 4 L high-flow. GENERAL: He is alert, active, does not appear in any distress though. LUNGS: Reveal bilateral breath sounds. Some coarse rhonchi. HEART: Reveals a regular rate and rhythm without murmur, gallops, or rubs. ABDOMEN: Soft. Bowel sounds present and active. EXTREMITIES: No edema or cyanosis. LABORATORY DATA: PCO2 of 69.8 and PO2 of 58.8. IMPRESSION: 1. A 68-year-old male, status post cardiac cath . 2. History of cardiomyopathy. 3. History of chronic obstructive pulmonary disease. 4. History of hypoxia. 5. History of posttraumatic stress disorder. 6. History of chronic pain. PLAN: . We will discuss and follow along with you as needed. Job ID: [id number]
[2019-03-25] MEDS: methylPREDNISolone Sod Succ 40 MG VIAL IVP SCH ×4 (05:03→23:23)
[2019-03-25 05:59] LABS: #Lymphocytes 0.4 thou/uL (1.20-3.40); #Monocytes 0.3 thou/uL (0.11-0.59); #Neutrophils 8.4 thou/uL (1.40-6.50); %Eosinophils 0.2 % (0.0-10.0); %Lymphocytes 4.5 % (21.0-51.0); %Monocytes 3.3 % (0.0-10.0); Hemoglobin 12.8 g/dL (14.0-18.0); Mean Corpuscular Hemoglobin 32.2 pg (27.0-31.0); Mean Platelet Volume 7.6 fL (7.4-10.4); Platelet Count 195 thou/uL (130-400); RBC Distribution Width 14.1 % (11.5-14.5); Red Blood Cell (RBC) Count 3.98 mill/uL (4.70-6.10); White Blood Cell (WBC) Count 9.1 thou/uL (4.8-10.8)
[2019-03-25 06:12] LABS: ALT (SGPT) 15 U/L (8-55); AST (SGOT) 21 U/L (5-34); Albumin 3.5 g/dL (3.4-4.8); Alkaline Phosphatase 81 U/L (40-150); Anion Gap 10 mmol/L (10-20); BUN (Urea Nitrogen) 21 mg/dL (8.4-25.7); Bilirubin, Total 0.9 mg/dL (0.2-1.2); Calc. Creatinine Clearance 91 mL/min (70-130); Calcium 9.7 mg/dL (7.8-10.44); Carbon Dioxide 32 mmol/L (23-31); Chloride 95 mmol/L (98-107); Estimated GFR-MDRD 82; Globulin 4.5 g/dL (2.4-3.5); Glucose 142 mg/dL (80-115); Potassium 4.8 mmol/L (3.5-5.1); Sodium 132 mmol/L (136-145)
[2019-03-25] MEDS: Budesonide 0.5 MG/2 ML NEB INH SCH ×2 (07:00→18:27)
[2019-03-25] MEDS: Arformoterol 15 MCG/2 ML NEB NEB SCH ×2 (07:01→18:26)
[2019-03-25] MEDS ORDERED: Furosemide 40 MG TAB PO SCH (07:30)
--- NOTE | 2019-03-25 07:59 | PRG ---
DATE OF SERVICE: 03/25/2019 SUBJECTIVE: Mr. Herrera is awake and alert. He is still on dopamine drip. He reports no chest pain. OBJECTIVE: VITAL SIGNS: Blood pressure is 112/69, respirations 22, O2 sat 93% on high-flow oxygen nasal cannula. LUNGS: Reveal scattered rhonchi. Occasional wheeze. HEART: Reveals no murmur. ABDOMEN: Soft. Bowel sounds are present and active. LABORATORY DATA: Hemoglobin 12.8, hematocrit 40.1, and white blood count 9.1. Sodium 132, potassium 4.8, chloride 95, CO2 of 32, BUN 21, and creatinine 0.91. IMPRESSION: 1. Atherosclerotic coronary artery disease. 2. Chronic obstructive pulmonary disease. 3. Posttraumatic stress disorder. 4. Chronic back pain. PLAN: Continue current care at this point. The patient seems to be stabilizing. Further attempts at weaning dopamine per protocol. Job ID: [id number]
[2019-03-25] MEDS ORDERED: Furosemide 40 MG/4 ML VIAL SLOW IVP SCH (08:30)
[2019-03-25] MEDS: Folic Acid 1 MG TAB PO SCH (08:59)
[2019-03-25] MEDS: Carvedilol 3.125 MG TAB PO SCH ×2 (08:59→17:45)
[2019-03-25] MEDS: Clopidogrel Bisulfate 75 MG TAB PO SCH (08:59)
[2019-03-25] MEDS: Aspirin Chewable 81 MG TAB PO SCH (08:59)
[2019-03-25] MEDS: Docusate 100 MG CAP PO SCH (08:59)
[2019-03-25] MEDS: Cyanocobalamin (Vitamin B-12) 1,000 MCG TAB PO SCH (09:57)
[2019-03-25] MEDS: Furosemide 40 MG/4 ML VIAL SLOW IVP SCH (14:51)
--- NOTE | 2019-03-25 16:32 | PRG ---
DATE OF SERVICE: 03/25/2019 SUBJECTIVE: Mr. Herrera's events been reviewed. He had a high-flow oxygen on this morning. We switched him to a nasal cannula. He has no complaints. He says he does not remember yesterday or last night. OBJECTIVE: VITAL SIGNS: On exam, heart rate is 93, respiratory rate is 22, oximetry is 90% on 4 L, blood pressure 111/67. Intake and output positive 3437. LUNGS: Remarkable for decreased breath sounds to his right base. HEART: Regular rhythm. ABDOMEN: Soft. LABORATORY DATA: White count 9.1, hemoglobin 12.8, platelets 195. Sodium 132, potassium 4.8, chloride 95, bicarb 32, BUN 21, creatinine 0.9. IMPRESSION: 1. Status post cardiac catheterization. 2. Underlying obstructive lung disease. 3. Chronic right sided effusion secondary to cardiomyopathy. 4. History of emotional lability. 2017 he was tearful almost every day when I saw him. 5. ? underlying chronic obstructive pulmonary disease. 6. History of chronic Afrin use. 7. History of GI bleeding with reflux disease in the past. 8. Mitral regurgitation, aortic insufficiency with a history of mitral valve annuloplasty with coronary artery bypass grafting in 2009. 9. History of daily marijuana use in the past. We will continue to follow. He appears to be medically stable. He has no tachypnea or complaints of shortness of breath with his effusion. Job ID: [id number]
[2019-03-25] MEDS: DOPamine 400 MG/D5W 250 ML 250 ML IVPB SCH (21:12)
[2019-03-25] MEDS: Atorvastatin Calcium 40 MG TAB PO SCH (21:12)
[2019-03-26] MEDS: Furosemide 40 MG/4 ML VIAL SLOW IVP SCH ×2 (05:25→14:20)
[2019-03-26] MEDS: methylPREDNISolone Sod Succ 40 MG VIAL IVP SCH ×4 (05:26→21:53)
[2019-03-26 06:05] LABS: Anion Gap 8 mmol/L (10-20); BUN (Urea Nitrogen) 36 mg/dL (8.4-25.7); Calc. Creatinine Clearance 79 mL/min (70-130); Calcium 9.7 mg/dL (7.8-10.44); Carbon Dioxide 33 mmol/L (23-31); Chloride 94 mmol/L (98-107); Estimated GFR-MDRD 71; Glucose 135 mg/dL (80-115); Potassium 5.2 mmol/L (3.5-5.1); Sodium 130 mmol/L (136-145)
[2019-03-26] MEDS: Budesonide 0.5 MG/2 ML NEB INH SCH ×2 (06:16→18:29)
[2019-03-26] MEDS: Arformoterol 15 MCG/2 ML NEB NEB SCH (06:16)
[2019-03-26] MEDS ORDERED: Zolpidem Tartrate 5 MG TAB PO PRN (07:47)
[2019-03-26] MEDS: Docusate 100 MG CAP PO SCH (09:10)
[2019-03-26] MEDS: Aspirin Chewable 81 MG TAB PO SCH (09:10)
[2019-03-26] MEDS: Clopidogrel Bisulfate 75 MG TAB PO SCH (09:11)
[2019-03-26] MEDS: Folic Acid 1 MG TAB PO SCH (09:11)
[2019-03-26] MEDS: Carvedilol 3.125 MG TAB PO SCH (09:11)
[2019-03-26] MEDS: Cyanocobalamin (Vitamin B-12) 1,000 MCG TAB PO SCH (09:15)
[2019-03-26] MEDS ORDERED: Magnesium Sulfate 3 GM in Sodium Chloride 0.9% 100 ML IVPB SCH (09:15)
--- NOTE | 2019-03-26 11:45 | PRG ---
DATE OF SERVICE: 03/26/2019 SUBJECTIVE: Mr. Herrera is doing well. He has no complaints. OBJECTIVE: VITAL SIGNS: Heart rate is 102, respiratory rate is 19, oximetry is 100% on 4 L, blood pressure 101/68. LUNGS: Remarkable for diffuse wheezes. HEART: Regular rhythm. S1 and S2 are normal. ABDOMEN: Soft and nontender. EXTREMITIES: Without edema. LABORATORY DATA: Sodium 130, potassium 5.2, chloride 94, bicarb 33, BUN 36, creatinine 1.04. IMPRESSION: 1. Status post coronary artery stenting. 2. Chronic obstructive pulmonary disease. 3. Right pleural effusion secondary to his cardiomyopathy. Last year when he was in the hospital, we documented improvement of his radiograph with diuresis, and no thoracentesis was done. 4. [id number]-[id number] kidney disease with a bump in his creatinine, likely because of a negative fluid balance combined with a recent contrast administration. 5. Posttraumatic stress disorder. He has not been as tearful this admission as he has been on past admissions. 6. We will continue steroids and nebulizer treatments. 7. He will receive IV magnesium today. 8. Smoking abstinence of both marijuana and tobacco would help. He is stable to move out of Critical Care Unit in my opinion. Job ID: [id number]
--- NOTE | 2019-03-26 12:47 | PRG ---
DATE OF SERVICE: 03/26/2019 SUBJECTIVE: Mr. Herrera is sitting up in chair. He has no complaints of chest pain. He is still on dopamine and high dose nasal cannula oxygen. OBJECTIVE: VITAL SIGNS: Temperature is afebrile; blood pressure 105/72, on dopamine; and O2 sat is 100% on 3 L. GENERAL: He is alert. Does not appear in any distress. LUNGS: Reveal bilateral rhonchi. HEART: Reveals a regular rate and rhythm. No murmurs, gallops, or rubs. LABORATORY DATA: Sodium 130, potassium 5.2, chloride 94, CO2 of 33, BUN 36, and creatinine 1.04. IMPRESSION: 1. Atherosclerotic coronary artery disease. 2. Chronic obstructive pulmonary disease. 3. Chronic pain. 4. Posttraumatic stress disorder, chronic with emotional lability. 5. Relative insomnia. PLAN: The patient continues to complain of not been able to be less anxious. He states he no longer can tolerate trazodone because it causes more nightmares for him, for him to try to sleep at night. I would prefer not to use any other sedative property medicines such as lorazepam, Xanax at this time if Pulmonary would approve that we could consider that in the future. Job ID: [id number]
--- NOTE | 2019-03-26 14:30 | PQF ---
DATE: 03-26-19 ATTN: DR. GURVINDER JOHNSON Please exercise your independent, professional judgment in responding to the clarification form. Clinical indicators are provided on the bottom of this form for your review Please check appropriate box(s): [ ] Acute respiratory failure due to an existing co-morbid condition [ ] Acute on chronic respiratory failure due to an existing co-morbid condition [ ] Acute respiratory failure related to the surgical procedure [ ] Acute on chronic respiratory failure related to the surgical procedure [ ] Other diagnosis [ ] Unable to determine For continuity of documentation, please document condition throughout progress notes and discharge summary. Thank You. CLINICAL INDICATORS - SIGNS / SYMPTOMS / LABS: CONSULT DR. MAJANO 03-24-2019: REASON FOR CONSULT " RESPIRATORY DISTRESS". HE HAS BEEN SOB AND HYPOXIC SINCE BEING MOVED TO THE CCU. O2 SATURATION RUNNING IN THE MID 80'S, DIMINISHED BREATH SOUNDS, POST CARDIAC CATH WITH RESPIRATORY DISTRESS, PROBABLY A COMPONENT OF HEART FAILURE AND COPD. CONSULT NOTE DR. Avinash KWONG 03-24-19: RR24, O2 SAT 90% ON 4L HIGH-FLOW TEMP: 03-25-19: 101, 101, 108, 104 RISKS FACTORS: CARDIAC CATH 03-24-19: BMS W PTCA CONSULT NOTE DR. 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 MAJANO 03-24-19: HIGH FLOW OXYGEN IF NOT BIPAP, CHECK LABS, STEROIDS, NEB TREATMENTS MAR: 03-25-19: LASIX IVF, NEBS, COREG, SOLUMEDROL (This form is maintained as a part of the permanent medical record) 2014 [employer]. All Rights Reserved ESTEFANIA [email or web address] Office: [phone] Acute on chronic respiratory failure secondary to preexisting copd with an exacerbation MTDD
--- NOTE | 2019-03-26 15:53 | PDOC.CTH ---
Cardiology Progress Note - Subjective He is doing well. He denies angina. Still needing innotropic support, when dopamine is stopped his BP drops to the the 80's. - Objective Vital Signs Temp Pulse Pulse Pulse Resp BP BP 03/26/19 15:18 95 18 03/26/19 12:00 98.5 F 03/26/19 10:30 102 H 19 03/26/19 10:01 106 H 105 H 125/74 104/82 03/26/19 08:00 98.8 F 03/26/19 07:41 03/26/19 06:18 03/26/19 06:15 99 16 03/26/19 04:00 98.9 F Pulse Ox Pulse Ox Pulse Ox 03/26/19 15:18 100 03/26/19 12:00 03/26/19 10:30 100 03/26/19 10:01 94 L 87 L 03/26/19 08:00 03/26/19 07:41 98 03/26/19 06:18 95 03/26/19 06:15 95 03/26/19 04:00 Weight 187 lb 6.287 oz 03/25/19 03/26/19 03/27/19 06:59 06:59 06:59 Intake Total 3887 904 210 Output Total 450 1530 1010 Balance 3437 -626 -800 - Physical Examination General/Neuro: alert & oriented x3, NAD Neck: no JVD present Lungs: CTA, unlabored respirations Heart: RRR Abdomen: NT/ND Extremities: other: (no edema) - Telemetry Telemetry Rhythm: NSR - Labs Result Diagrams: 03/25/19 05:37 03/26/19 05:20 - Assessment/Plan 1. CAD, S/P PCI to OM through vein graft with BMS 2. COPD 3. Right pleural effusion 4. GA on CKD 5. PTSD PLAN: - Try to wean dopamine. - Continue other meds. - Will hold coreg due to low BP.
[2019-03-26] MEDS: DOPamine 400 MG/D5W 250 ML 250 ML IVPB SCH (18:21)
[2019-03-26] MEDS: guaiFENesin ER 600 MG TAB PO SCH (21:53)
[2019-03-26] MEDS: Atorvastatin Calcium 40 MG TAB PO SCH (21:54)
[2019-03-27] MEDS: methylPREDNISolone Sod Succ 40 MG VIAL IVP SCH ×4 (03:56→21:24)
[2019-03-27 04:32] LABS: #Basophils 0.1 thou/uL (0.0-0.2); #Lymphocytes 0.5 thou/uL (1.20-3.40); #Monocytes 0.7 thou/uL (0.11-0.59); #Neutrophils 12.3 thou/uL (1.40-6.50); %Basophils 0.5 % (0.0-1.0); %Eosinophils 0.1 % (0.0-10.0); %Lymphocytes 3.6 % (21.0-51.0); %Neutrophils 90.8 % (42.0-75.0); Hemoglobin 13.2 g/dL (14.0-18.0); Mean Corpuscular HGB CONC 32.5 g/dL (32.0-36.0); Mean Corpuscular Hemoglobin 32.6 pg (27.0-31.0); Platelet Count 185 thou/uL (130-400); RBC Distribution Width 14.3 % (11.5-14.5); Red Blood Cell (RBC) Count 4.06 mill/uL (4.70-6.10); White Blood Cell (WBC) Count 13.5 thou/uL (4.8-10.8)
[2019-03-27 04:51] LABS: ALT (SGPT) 27 U/L (8-55); AST (SGOT) 31 U/L (5-34); Albumin 3.9 g/dL (3.4-4.8); Alkaline Phosphatase 100 U/L (40-150); Anion Gap 13 mmol/L (10-20); BUN (Urea Nitrogen) 42 mg/dL (8.4-25.7); Calc. Creatinine Clearance 73 mL/min (70-130); Calcium 9.9 mg/dL (7.8-10.44); Carbon Dioxide 34 mmol/L (23-31); Chloride 92 mmol/L (98-107); Estimated GFR-MDRD 64; Globulin 4.6 g/dL (2.4-3.5); Glucose 124 mg/dL (80-115); Potassium 4.8 mmol/L (3.5-5.1); Protein, Total 8.5 g/dL (5.8-8.1); Sodium 134 mmol/L (136-145)
[2019-03-27] MEDS: Budesonide 0.5 MG/2 ML NEB INH SCH ×2 (07:15→19:40)
[2019-03-27] MEDS: Folic Acid 1 MG TAB PO SCH (08:27)
[2019-03-27] MEDS: guaiFENesin ER 600 MG TAB PO SCH ×2 (08:27→21:23)
[2019-03-27] MEDS: Docusate 100 MG CAP PO SCH (08:28)
[2019-03-27] MEDS: Aspirin Chewable 81 MG TAB PO SCH (08:28)
[2019-03-27] MEDS: Clopidogrel Bisulfate 75 MG TAB PO SCH (08:28)
[2019-03-27] MEDS: Cyanocobalamin (Vitamin B-12) 1,000 MCG TAB PO SCH (08:28)
--- NOTE | 2019-03-27 09:04 | PRG ---
DATE OF SERVICE: 03/27/2019 SUBJECTIVE: This morning, he is awake, alert, and responsive. He is better. He is on dopamine, which is trying to be tapered off. OBJECTIVE: VITAL SIGNS: Blood pressure 108/75, sats are 94% on 4 L, pulse 91, and respiratory rate 18. GENERAL: He is afebrile. He said he is feeling better. His I's and O's have been consistently negative. CHEST: Extensive rhonchi and crackles bilaterally. CARDIAC: Normal S1 and S2. No gallops. ABDOMEN: No masses. LABORATORY DATA: His creatinine is slightly elevated at 1.13 and BUN 42. White count normal. IMPRESSION: 1. Congestive heart failure. 2. Right pleural effusion. 3. Chronic obstructive pulmonary disease. 4. Respiratory failure. 5. Hypertension. PLAN: 1. Continue aggressive cardiac care. 2. Continue neb treatment and steroids. 3. We will follow. Job ID: [id number]
[2019-03-27] MEDS ORDERED: Gabapentin 100 MG CAP PO PRN (10:32)
--- NOTE | 2019-03-27 11:00 | PRG ---
DATE OF SERVICE: 03/27/2019 PRIMARY CARE PHYSICIAN: Dr. Jas Martin. SUBJECTIVE: The patient is feeling some better. He was able to walk in the room. Continues to require oxygen, but was able to wean off dopamine this morning. Denies chest pain. Breathing is stable. Continues to have some coughing, but no shortness of breath at rest. No conversational dyspnea. No fevers or chills. OBJECTIVE: VITAL SIGNS: Temperature 97.1, pulse of 101, respirations 29, blood pressure 115/66, pulse ox 100% on 2 L nasal cannula. GENERAL: He is awake and alert. No acute distress. Pleasant. No conversational dyspnea. NECK: Supple. HEART: Regular rate and rhythm. LUNGS: Scattered rhonchi throughout. Positive expiratory wheezes. ABDOMEN: Soft. EXTREMITIES: No edema. LABORATORY DATA: White blood cell count 13,500, hemoglobin and hematocrit are 13.2 and 40.1 with macrocytic indices, platelets of 185. Sodium 134, potassium 4.8, chloride 92, CO2 of 34, BUN and creatinine are 42 and 1.13 with a GFR of 64, serum glucose of 124, albumin of 3.9, calcium of 9.9. No chest x-ray for this morning. Chest x-ray on 03/24/2019 revealed pulmonary vessel congestion, perihilar interstitial prominence. ASSESSMENT AND PLAN: 1. This is a 68-year-old gentleman with coronary artery disease, status post percutaneous coronary intervention to . 2. Hypotension, was able to wean off dopamine. We will continue to follow his blood pressures closely. 3. Chronic obstructive pulmonary disease. Appreciate Pulmonary evaluation, on steroid therapy right now and neb treatments. 4. Acute kidney injury with chronic kidney disease. 5. Post-traumatic stress disorder with difficulty sleeping. He had no relief with Ambien. We will give a trial of gabapentin for his sleep as well as restlessness due to his PTSD and anxiety. Consider SSRI. Would also consider prazosin once his blood pressure stabilizes. Could continue to work on this as an outpatient. Job ID: [id number]
[2019-03-27] MEDS: Atorvastatin Calcium 40 MG TAB PO SCH (21:22)
[2019-03-28] MEDS: methylPREDNISolone Sod Succ 40 MG VIAL IVP SCH (04:55)
[2019-03-28 05:02] LABS: #Lymphocytes 0.3 thou/uL (1.20-3.40); #Monocytes 0.5 thou/uL (0.11-0.59); #Neutrophils 9.7 thou/uL (1.40-6.50); %Basophils 0.4 % (0.0-1.0); %Eosinophils 0.1 % (0.0-10.0); %Monocytes 4.4 % (0.0-10.0); %Neutrophils 92.1 % (42.0-75.0); Hemoglobin 12.4 g/dL (14.0-18.0); Mean Corpuscular HGB CONC 32.8 g/dL (32.0-36.0); Mean Corpuscular Hemoglobin 32.9 pg (27.0-31.0); Platelet Count 161 thou/uL (130-400); RBC Distribution Width 14.4 % (11.5-14.5); Red Blood Cell (RBC) Count 3.75 mill/uL (4.70-6.10); White Blood Cell (WBC) Count 10.5 thou/uL (4.8-10.8)
[2019-03-28 05:27] LABS: ALT (SGPT) 28 U/L (8-55); AST (SGOT) 27 U/L (5-34); Albumin 3.6 g/dL (3.4-4.8); Alkaline Phosphatase 93 U/L (40-150); Anion Gap 9 mmol/L (10-20); BUN (Urea Nitrogen) 37 mg/dL (8.4-25.7); Bilirubin, Total 1.2 mg/dL (0.2-1.2); Calc. Creatinine Clearance 87 mL/min (70-130); Carbon Dioxide 34 mmol/L (23-31); Chloride 94 mmol/L (98-107); Estimated GFR-MDRD 78; Glucose 124 mg/dL (80-115); Potassium 4.7 mmol/L (3.5-5.1); Protein, Total 7.6 g/dL (5.8-8.1); Sodium 132 mmol/L (136-145)
[2019-03-28] MEDS: Budesonide 0.5 MG/2 ML NEB INH SCH ×2 (07:00→18:41)
[2019-03-28] MEDS: guaiFENesin ER 600 MG TAB PO SCH ×2 (07:45→22:17)
[2019-03-28] MEDS: Clopidogrel Bisulfate 75 MG TAB PO SCH (07:46)
[2019-03-28] MEDS: Folic Acid 1 MG TAB PO SCH (07:46)
[2019-03-28] MEDS: Cyanocobalamin (Vitamin B-12) 1,000 MCG TAB PO SCH (07:46)
[2019-03-28] MEDS: Docusate 100 MG CAP PO SCH (07:46)
[2019-03-28] MEDS: Aspirin Chewable 81 MG TAB PO SCH (07:46)
[2019-03-28] MEDS ORDERED: Gabapentin 100 MG CAP PO PRN (08:42)
--- NOTE | 2019-03-28 09:58 | PRG ---
DATE OF SERVICE: 03/28/2019 PRIMARY CARE PHYSICIAN: Dr. Jas Martin. SUBJECTIVE: The patient states that he slept some better. He had improved pain. He was able to rest more, still had difficulty falling asleep, but much better than the night before and in the past. Tolerating the gabapentin without any side effects at this time. Blood pressure remained stable. Continues to be off dopamine. Continues to have coughing and shortness of breath, but slow improvement. OBJECTIVE: VITAL SIGNS: Temperature 98.5, pulse of 97 to 106, respirations 18 to 25, blood pressure 140/77, pulse ox is 99% on 2 L nasal cannula. GENERAL: He is awake and alert. No conversational dyspnea. NECK: Supple. HEART: Regular rate and rhythm. LUNGS: With rhonchi throughout. Occasional expiratory wheezes. ABDOMEN: Soft. LABORATORY DATA: White blood cell count 10,500, hemoglobin and hematocrit 12.4 and 37.6 with macrocytic indices, platelets of 161. Sodium 132, potassium 4.7, chloride 94, CO2 of 34, BUN and creatinine 37 and 0.95 with a GFR of 78, serum glucose of 124. ASSESSMENT AND PLAN: This is a 68-year-old gentleman, status post left heart catheterization with percutaneous coronary intervention. 1. Coronary artery disease. Continue plan per Cardiology. 2. Hypotension, has resolved. He was able to wean off dopamine. Blood pressure in the 130s to 140s. 3. Chronic obstructive pulmonary disease with exacerbation. Plan per Pulmonology. Continue steroid therapy, nebs, and oxygen therapy. 4. Acute kidney injury, is improving. 5. Insomnia with post-traumatic stress disorder and chronic pain. Some improvement with gabapentin. We will increase to 300 mg. Consider prazosin once his blood pressure is able to tolerate it. Job ID: [id number]
[2019-03-28] MEDS: Atorvastatin Calcium 40 MG TAB PO SCH (22:17)
[2019-03-28] MEDS: Gabapentin 300 MG CAP PO PRN (22:17)
[2019-03-29 05:27] LABS: #Lymphocytes 0.6 thou/uL (1.20-3.40); #Monocytes 0.9 thou/uL (0.11-0.59); #Neutrophils 8.4 thou/uL (1.40-6.50); %Basophils 0.1 % (0.0-1.0); %Eosinophils 0.1 % (0.0-10.0); %Monocytes 9.1 % (0.0-10.0); %Neutrophils 84.8 % (42.0-75.0); Hemoglobin 12.3 g/dL (14.0-18.0); Mean Corpuscular HGB CONC 32.2 g/dL (32.0-36.0); Mean Corpuscular Hemoglobin 32.7 pg (27.0-31.0); Mean Platelet Volume 8.7 fL (7.4-10.4); Platelet Count 137 thou/uL (130-400); RBC Distribution Width 14.4 % (11.5-14.5); Red Blood Cell (RBC) Count 3.75 mill/uL (4.70-6.10); White Blood Cell (WBC) Count 9.9 thou/uL (4.8-10.8)
[2019-03-29 05:52] LABS: ALT (SGPT) 30 U/L (8-55); AST (SGOT) 32 U/L (5-34); Albumin 3.6 g/dL (3.4-4.8); Alkaline Phosphatase 70 U/L (40-150); Anion Gap 11 mmol/L (10-20); BUN (Urea Nitrogen) 33 mg/dL (8.4-25.7); Bilirubin, Total 1.3 mg/dL (0.2-1.2); Calc. Creatinine Clearance 81 mL/min (70-130); Calcium 9.1 mg/dL (7.8-10.44); Carbon Dioxide 35 mmol/L (23-31); Chloride 92 mmol/L (98-107); Estimated GFR-MDRD 72; Globulin 3.9 g/dL (2.4-3.5); Glucose 79 mg/dL (80-115); Potassium 5.1 mmol/L (3.5-5.1); Protein, Total 7.5 g/dL (5.8-8.1); Sodium 133 mmol/L (136-145)
[2019-03-29] MEDS: Budesonide 0.5 MG/2 ML NEB INH SCH ×2 (07:02→18:24)
--- NOTE | 2019-03-29 07:14 | PRG ---
DATE OF SERVICE: 03/28/2019 SUBJECTIVE: This morning, he is awake, alert, and responsive. He is better. OBJECTIVE: VITAL SIGNS: Saturations are 93% on 3 L, pulse 79, respiratory rate 18, temperature 98, blood pressure 138/84. CHEST: Bilateral crackles, rhonchi left greater than right. CARDIAC: Normal S1, S2. No gallops. ABDOMEN: No masses. LABORATORY DATA: White count 10,000. IMPRESSION: 1. Status post coronary artery disease, stenting. 2. Chronic obstructive pulmonary disease. 3. Cardiomyopathy. 4. Renal failure. 5. Pain. Appears to be stable enough to be moved out of the ICU. Continue pain relief. Continue neb treatment. Switch him over to oral prednisone. We will follow. Job ID: [id number]
[2019-03-29] MEDS: predniSONE 20 MG TAB PO SCH (08:58)
[2019-03-29] MEDS: Docusate 100 MG CAP PO SCH (08:59)
[2019-03-29] MEDS: Aspirin Chewable 81 MG TAB PO SCH (08:59)
[2019-03-29] MEDS: guaiFENesin ER 600 MG TAB PO SCH ×2 (08:59→20:18)
[2019-03-29] MEDS: Cyanocobalamin (Vitamin B-12) 1,000 MCG TAB PO SCH (08:59)
[2019-03-29] MEDS: Lisinopril 2.5 MG TAB PO SCH (08:59)
[2019-03-29] MEDS: Clopidogrel Bisulfate 75 MG TAB PO SCH (08:59)
[2019-03-29] MEDS: Folic Acid 1 MG TAB PO SCH (08:59)
--- NOTE | 2019-03-29 14:20 | PRG ---
DATE OF SERVICE: 03/29/2019 SUBJECTIVE: Mr. Hrerera is still in the ICU, he is resting well. He reports that he had no success with Ambien for sleep. He has not been given gabapentin, which he states is helping a little bit. Otherwise, he is doing well. Cardiac walker, he has improved. OBJECTIVE: VITAL SIGNS: His blood pressure is 129/99, temperature is 98.6. LUNGS: Scattered rhonchi. HEART: Reveals a regular rate and rhythm. No murmurs, gallops, or rubs. IMPRESSION: 1. Atherosclerotic coronary artery disease. 2. Chronic obstructive pulmonary disease. 3. Chronic insomnia/posttraumatic stress disorder. PLAN: Continue gabapentin at bedtime. Job ID: [id number]
--- NOTE | 2019-03-29 14:29 | PRG ---
DATE OF SERVICE: 03/29/2019 OBJECTIVE: VITAL SIGNS: Mr. Herrera is afebrile. Heart rate is 93, respiratory rate 17, oximetry is 97% on 3 L, and blood pressure 120/76. Intake and outputs negative 265. LUNGS: Still remarkable for diffuse wheezes. They are improved compared to Friday. HEART: Regular rhythm. ABDOMEN: Soft. EXTREMITIES: Without edema. LABORATORY DATA: White count 9.9, hemoglobin 12.3, platelets 137. Sodium 133, potassium 5.1, chloride 92, bicarb 35, BUN 33, creatinine 1.02. IMPRESSION: 1. Status post coronary stenting. 2. Underlying chronic obstructive pulmonary disease with bronchospasm that appears to be improving. 3. Ongoing tobacco and marijuana use. Has been again explained to him the importance of cessation now, but he has both heart and lung diseases and is in the critical care environment. He is stable to move out for telemetry if there are any telemetry beds. We will continue to follow. Job ID: [id number]
[2019-03-29] MEDS: Carvedilol 3.125 MG TAB PO SCH (17:58)
[2019-03-29] MEDS: Atorvastatin Calcium 40 MG TAB PO SCH (20:18)
[2019-03-29] MEDS: Gabapentin 300 MG CAP PO PRN (22:26)
[2019-03-30 06:54] LABS: #Lymphocytes 0.8 thou/uL (1.20-3.40); #Monocytes 0.8 thou/uL (0.11-0.59); #Neutrophils 8.3 thou/uL (1.40-6.50); %Basophils 0.1 % (0.0-1.0); %Eosinophils 0.2 % (0.0-10.0); %Lymphocytes 7.8 % (21.0-51.0); %Monocytes 7.8 % (0.0-10.0); %Neutrophils 84.1 % (42.0-75.0); Hemoglobin 12.7 g/dL (14.0-18.0); Mean Corpuscular HGB CONC 32.8 g/dL (32.0-36.0); Mean Corpuscular Hemoglobin 33.4 pg (27.0-31.0); Mean Platelet Volume 8.7 fL (7.4-10.4); Platelet Count 142 thou/uL (130-400); RBC Distribution Width 14.2 % (11.5-14.5); White Blood Cell (WBC) Count 9.9 thou/uL (4.8-10.8)
[2019-03-30] MEDS: Budesonide 0.5 MG/2 ML NEB INH SCH ×2 (07:05→19:20)
[2019-03-30 07:25] LABS: ALT (SGPT) 31 U/L (8-55); AST (SGOT) 26 U/L (5-34); Albumin 3.6 g/dL (3.4-4.8); Alkaline Phosphatase 78 U/L (40-150); Anion Gap 11 mmol/L (10-20); BUN (Urea Nitrogen) 25 mg/dL (8.4-25.7); Bilirubin, Total 1.4 mg/dL (0.2-1.2); Calc. Creatinine Clearance 102 mL/min (70-130); Calcium 9.4 mg/dL (7.8-10.44); Carbon Dioxide 32 mmol/L (23-31); Chloride 95 mmol/L (98-107); Estimated GFR-MDRD Greater than 90; Globulin 3.9 g/dL (2.4-3.5); Glucose 82 mg/dL (80-115); Potassium 4.7 mmol/L (3.5-5.1); Protein, Total 7.5 g/dL (5.8-8.1); Sodium 133 mmol/L (136-145)
--- NOTE | 2019-03-30 07:45 | RAD ---
Frontal view chest CLINICAL HISTORY: Right pleural effusion, follow-up. FINDINGS: Persistent pleural-based density of the mid inferior right chest remains. There is interstitial promi nence again seen within each lung. Cardiac silhouette and vasculature remain enlarged. IMPRESSION: Stable chest. Transcribed Date/Time: 03/30/2019 8:38 AM
[2019-03-30] MEDS ORDERED: Docusate 100 MG CAP PO SCH (09:00)
[2019-03-30] MEDS ORDERED: Furosemide 40 MG TAB PO SCH (09:30)
[2019-03-30] MEDS: guaiFENesin ER 600 MG TAB PO SCH ×2 (09:54→21:02)
[2019-03-30] MEDS: predniSONE 20 MG TAB PO SCH (09:54)
[2019-03-30] MEDS: Carvedilol 3.125 MG TAB PO SCH ×2 (09:54→17:39)
[2019-03-30] MEDS: Cyanocobalamin (Vitamin B-12) 1,000 MCG TAB PO SCH (09:55)
[2019-03-30] MEDS: Aspirin Chewable 81 MG TAB PO SCH (09:55)
[2019-03-30] MEDS: Lisinopril 2.5 MG TAB PO SCH (09:55)
[2019-03-30] MEDS: Clopidogrel Bisulfate 75 MG TAB PO SCH (09:55)
[2019-03-30] MEDS: Folic Acid 1 MG TAB PO SCH (10:04)
--- NOTE | 2019-03-30 14:05 | PRG ---
DATE OF SERVICE: 03/30/2019 SUBJECTIVE: Mr Herrera did well overnight. He has no complaints. He was again counseled about resuming smoking. He was told his stent would close off if he continue to smoke. He changes the subject every time I talked about smoking cessation. His was in the room to witness this and was appreciative. OBJECTIVE: VITAL SIGNS: Blood pressure 122/71, heart rate 74, respiratory rate 18. LUNGS: His wheezes persist, but they are improved. He has shorter exhale time. HEART: Regular rhythm. ABDOMEN: Soft. EXTREMITIES: Without edema. LABORATORY DATA: White count 9.9, hemoglobin 12.7, platelets 142. Sodium 133, potassium 4.7, chloride 95, bicarb 33, BUN 25, creatinine 0.82. IMPRESSION: 1. Status post coronary artery stenting. 2. Chronic obstructive pulmonary disease with exacerbation that did not occur as a result of cardiac cath but was secondary to ongoing heavy tobacco and marijuana use. 3. Posttraumatic stress disorder and depression. 4. Systolic cardiomyopathy with ejection fraction around 30%. 5. Lipid disorder. 6. Mitral regurgitation and aortic insufficiency, status post mitral valve annuloplasty. 7. History of coronary artery bypass grafting in the past. PLAN: We will continue with supportive care on telemetry unit. We will try to start working on discharge planning for probably within the next 24 to 48 hours. Job ID: [id number] [facility]
[2019-03-30] MEDS: Gabapentin 300 MG CAP PO PRN (21:02)
[2019-03-30] MEDS: Atorvastatin Calcium 40 MG TAB PO SCH (21:02)
[2019-03-30] MEDS: Docusate 100 MG CAP PO SCH (22:12)
[2019-03-31 06:32] LABS: #Basophils 0.1 thou/uL (0.0-0.2); #Lymphocytes 0.7 thou/uL (1.20-3.40); #Monocytes 0.7 thou/uL (0.11-0.59); #Neutrophils 7.9 thou/uL (1.40-6.50); %Basophils 0.6 % (0.0-1.0); %Eosinophils 0.5 % (0.0-10.0); %Lymphocytes 7.3 % (21.0-51.0); %Monocytes 7.7 % (0.0-10.0); %Neutrophils 83.9 % (42.0-75.0); Hemoglobin 11.5 g/dL (14.0-18.0); Mean Corpuscular HGB CONC 31.8 g/dL (32.0-36.0); Mean Corpuscular Hemoglobin 32.1 pg (27.0-31.0); Mean Platelet Volume 8.6 fL (7.4-10.4); Platelet Count 135 thou/uL (130-400); RBC Distribution Width 14.3 % (11.5-14.5); Red Blood Cell (RBC) Count 3.59 mill/uL (4.70-6.10); White Blood Cell (WBC) Count 9.4 thou/uL (4.8-10.8)
[2019-03-31 06:50] LABS: ALT (SGPT) 27 U/L (8-55); AST (SGOT) 23 U/L (5-34); Albumin 3.2 g/dL (3.4-4.8); Alkaline Phosphatase 81 U/L (40-150); Anion Gap 11 mmol/L (10-20); BUN (Urea Nitrogen) 29 mg/dL (8.4-25.7); Bilirubin, Total 1.2 mg/dL (0.2-1.2); Calc. Creatinine Clearance 94 mL/min (70-130); Calcium 8.7 mg/dL (7.8-10.44); Carbon Dioxide 35 mmol/L (23-31); Chloride 93 mmol/L (98-107); Estimated GFR-MDRD 85; Globulin 3.1 g/dL (2.4-3.5); Glucose 84 mg/dL (80-115); Potassium 4.2 mmol/L (3.5-5.1); Protein, Total 6.3 g/dL (5.8-8.1); Sodium 135 mmol/L (136-145)
[2019-03-31] MEDS: Budesonide 0.5 MG/2 ML NEB INH SCH ×2 (07:11→19:08)
[2019-03-31] MEDS: Carvedilol 3.125 MG TAB PO SCH ×2 (08:30→17:31)
[2019-03-31] MEDS: Furosemide 40 MG TAB PO SCH (08:30)
[2019-03-31] MEDS: Lisinopril 2.5 MG TAB PO SCH (08:32)
[2019-03-31] MEDS: Docusate 100 MG CAP PO SCH ×2 (08:32→20:41)
[2019-03-31] MEDS: Clopidogrel Bisulfate 75 MG TAB PO SCH (08:32)
[2019-03-31] MEDS: guaiFENesin ER 600 MG TAB PO SCH ×2 (08:32→20:41)
[2019-03-31] MEDS: Cyanocobalamin (Vitamin B-12) 1,000 MCG TAB PO SCH (08:32)
[2019-03-31] MEDS: predniSONE 20 MG TAB PO SCH (08:32)
[2019-03-31] MEDS: Aspirin Chewable 81 MG TAB PO SCH (08:33)
[2019-03-31] MEDS: Folic Acid 1 MG TAB PO SCH (08:33)
--- NOTE | 2019-03-31 15:58 | PRG ---
DATE OF SERVICE: 03/31/2019 SUBJECTIVE: Mr. Herrera is doing well. His first question was wondering whether or not I was going to quit him out about his smoking. I explained to him that I just want him to do well and we will not talk about anymore. OBJECTIVE: VITAL SIGNS: Heart rate 80, respiratory rate 16, oximetry is 92% on 2 L, and blood pressure 108/52 this morning. LUNGS: Clear. HEART: Regular rhythm. ABDOMEN: Soft. IMPRESSION: 1. Chronic obstructive pulmonary disease exacerbation, unrelated to cardiac catheterization, improving. 2. Status post coronary stenting. 3. History of coronary artery bypass grafting. 4. History of posttraumatic stress disorder. 5. Systolic cardiomyopathy. 6. History of lipid disorder. 7. Mitral regurgitation, status post mitral valve annuloplasty and aortic insufficiency. PLAN: He should be a candidate for discharge. I would think in 24 hours. If not today, we will defer to Cardiology. Job ID: [id number]
[2019-03-31] MEDS: Atorvastatin Calcium 40 MG TAB PO SCH (20:41)
[2019-03-31] MEDS: Gabapentin 300 MG CAP PO PRN (20:44)
[2019-04-01 05:36] LABS: Anion Gap 13 mmol/L (10-20); BUN (Urea Nitrogen) 22 mg/dL (8.4-25.7); Calc. Creatinine Clearance 96 mL/min (70-130); Carbon Dioxide 31 mmol/L (23-31); Chloride 94 mmol/L (98-107); Estimated GFR-MDRD 87; Glucose 78 mg/dL (80-115); Potassium 4.7 mmol/L (3.5-5.1); Sodium 133 mmol/L (136-145)
[2019-04-01] MEDS: Budesonide 0.5 MG/2 ML NEB INH SCH ×2 (07:50→18:25)
[2019-04-01] MEDS: Carvedilol 3.125 MG TAB PO SCH ×2 (08:39→16:58)
[2019-04-01] MEDS: Aspirin Chewable 81 MG TAB PO SCH (08:39)
[2019-04-01] MEDS: Furosemide 40 MG TAB PO SCH (08:39)
[2019-04-01] MEDS: predniSONE 20 MG TAB PO SCH (08:39)
[2019-04-01] MEDS: Clopidogrel Bisulfate 75 MG TAB PO SCH (08:39)
[2019-04-01] MEDS: Cyanocobalamin (Vitamin B-12) 1,000 MCG TAB PO SCH (08:40)
[2019-04-01] MEDS: Lisinopril 2.5 MG TAB PO SCH (08:40)
[2019-04-01] MEDS: Docusate 100 MG CAP PO SCH ×2 (08:40→20:01)
[2019-04-01] MEDS: guaiFENesin ER 600 MG TAB PO SCH ×2 (08:40→20:01)
[2019-04-01] MEDS: Folic Acid 1 MG TAB PO SCH (08:40)
[2019-04-01] MEDS ORDERED: Furosemide 100 MG/10 ML VIAL SLOW IVP SCH (11:45)
--- NOTE | 2019-04-01 11:55 | PRG ---
DATE OF SERVICE: 04/01/2019 SUBJECTIVE: Stuart Herrera is in no distress. He has no complaints. Room air sat was 92 this morning, so it is unlikely, he will need to go home with oxygen. OBJECTIVE: VITAL SIGNS: Blood pressure 111/67. He is afebrile. Heart rates in the 90s. LUNGS: Remarkable for decreased breath sounds at the right base. HEART: Regular rhythm. ABDOMEN: Soft. LABORATORY DATA: Creatinine today is 0.87. PLAN: We will give him an extra dose of Lasix for his lower extremity edema and his right effusion. I will probably just follow this effusion as an outpatient. Would cut his fluids back to a 1000 mL. He may be able to go home in 24 hours. Job ID: [id number]
[2019-04-01 12:31] VITALS: BMI 27.1
[2019-04-01] MEDS: Atorvastatin Calcium 40 MG TAB PO SCH (20:01)
[2019-04-01] MEDS: Gabapentin 300 MG CAP PO PRN (20:03)
--- NOTE | 2019-04-01 20:18 | PRG ---
DATE OF SERVICE: 04/01/2019 SUBJECTIVE: Mr. Herrera reports no complaints. He is breathing better. He states he did sleep better. As a matter of fact, yesterday, I tried to arouse and he was sleepy fairly, so I did not arouse him at that time. He still reports having some posttraumatic stress issues with nightmares. OBJECTIVE: LUNGS: Clear. HEART: Reveals a regular rate and rhythm. IMPRESSION: 1. Atherosclerotic coronary artery disease. 2. Chronic obstructive pulmonary disease. 3. Posttraumatic stress disorder. PLAN: Continue current medications. Job ID: [id number]
[2019-04-02 05:27] LABS: Anion Gap 12 mmol/L (10-20); BUN (Urea Nitrogen) 22 mg/dL (8.4-25.7); Calc. Creatinine Clearance 90 mL/min (70-130); Calcium 9.3 mg/dL (7.8-10.44); Carbon Dioxide 35 mmol/L (23-31); Chloride 92 mmol/L (98-107); Estimated GFR-MDRD 80; Glucose 79 mg/dL (80-115); Potassium 4.4 mmol/L (3.5-5.1); Sodium 135 mmol/L (136-145)
[2019-04-02] MEDS: Budesonide 0.5 MG/2 ML NEB INH SCH ×2 (06:43→19:32)
[2019-04-02] MEDS: guaiFENesin ER 600 MG TAB PO SCH (08:52)
[2019-04-02] MEDS: Cyanocobalamin (Vitamin B-12) 1,000 MCG TAB PO SCH (08:52)
[2019-04-02] MEDS: Carvedilol 3.125 MG TAB PO SCH (08:53)
[2019-04-02] MEDS: Folic Acid 1 MG TAB PO SCH (08:53)
[2019-04-02] MEDS: Lisinopril 2.5 MG TAB PO SCH (08:53)
[2019-04-02] MEDS: Aspirin Chewable 81 MG TAB PO SCH (08:53)
[2019-04-02] MEDS: Furosemide 40 MG TAB PO SCH (08:54)
[2019-04-02] MEDS: predniSONE 20 MG TAB PO SCH (08:54)
[2019-04-02] MEDS: Docusate 100 MG CAP PO SCH (08:54)
[2019-04-02] MEDS: Clopidogrel Bisulfate 75 MG TAB PO SCH (08:54)
--- NOTE | 2019-04-02 14:22 | PRG ---
DATE OF SERVICE: 04/02/2019 SUBJECTIVE: Mr. Herrera is awake and alert, sitting up. He is still noting some edema to his legs. I am unsure, if gabapentin is a cause of this at this time. Otherwise, he seems to be feeling fairly well. OBJECTIVE: VITAL SIGNS: Temperature 99.4, blood pressure 96/51, O2 saturation is 98% on 2 L. LUNGS: Bilateral breath sounds. HEART: Reveals a regular rate and rhythm. No murmurs, gallops, or rubs. LABORATORY DATA: Sodium 135, potassium 4.4, chloride 92, CO2 35, BUN 22, creatinine 0.93. IMPRESSION: 1. Atherosclerotic coronary artery disease. 2. Chronic obstructive pulmonary disease. 3. Posttraumatic stress disorder. PLAN: As the patient could be discharged home, I have written a prescription for gabapentin, which seems to have helped him sleep some, although he still notices some nightmares at night. He is sleeping very well on the middle of the day on the last two days I saw him. I attempted to see him, he was sound asleep at noontime, and I did not wish to wake him up, and he was sleeping better. I have informed the patient of this. He states he does appreciate that. I have asked him to continue on gabapentin. Job ID: [id number]
--- NOTE | 2019-04-02 14:55 | PRG ---
DATE OF SERVICE: 04/02/2019 SUBJECTIVE: Mr. Herrera did well overnight. He does not want to go home. He says he had a nightmare, woke up, dreamed he was dying last night. He has no new complaints. He is in absolutely no distress. OBJECTIVE: VITAL SIGNS: Have been stable. LUNGS: Completely clear. HEART: Regular rhythm. ABDOMEN: Soft. LABORATORY DATA: Sodium 135, potassium 4.4, chloride 92, bicarb 35, BUN 22, creatinine 0.93. IMPRESSION AND PLAN: 1. Congestive heart failure, clinically stable. 2. Right pleural effusion secondary to congestive heart failure. 3. Chronic obstructive pulmonary disease exacerbation unrelated to the cardiac catheterization. 4. Posttraumatic stress disorder mixed with depression. He has been self medicating with marijuana and cigarettes. He is again instructed to abstain from tobacco. 5. Status post coronary stenting this admission. In my opinion, he is stable for discharge. I have written for 2-week prednisone taper. I will see him in the office in followup in 2 to 3 weeks with a chest x-ray. I do not feel thoracentesis is indicated at this time. Job ID: [id number]
[2019-04-02 15:37] VITALS: TEMP 97.9
[2019-04-02] MEDS ORDERED: Carvedilol 3.125 MG TAB PO SCH (17:00)
[2019-04-02 17:01] VITALS: BP 126/67
--- NOTE | 2019-04-02 22:23 | DIS ---
DATE OF ADMISSION: 03/24/2019 DATE OF DISCHARGE: 04/02/2019 DISCHARGE DIAGNOSES: 1. Hypoxic respiratory failure - chronic obstructive pulmonary disease and congestive heart failure. 2. Right pleural effusion. 3. Bare metal stent placement in the first obtuse marginal distal to the graft insertion. 4. Occluded ramus (not diagonal) graft and distal right coronary artery graft. 5. Status post coronary artery bypass grafting x4 and mitral valve repair. 6. With hypotension, he developed chest pain and ST-segment elevation in 2 and 3 (RCA and distal RCA grafts are occluded). 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 7. Ischemic cardiomyopathy, ejection fraction 35% to 40%. 8. Chronic obstructive pulmonary disease/smoker, where the patient continues to smoke. 9. History of nonsustained ventricular tachycardia. 10. Hypercholesterolemia - poorly controlled until recently. 11. History of gastrointestinal bleed. 12. Questionable back surgery in the future. From a cardiac standpoint, he would be at moderate to high risk as well as poor respiratory status. DISCHARGE MEDICATIONS: 1. Aspirin 81 daily. 2. Plavix 75 mg q.a.m. x21 more days. 3. Atorvastatin 40 daily. 4. Pulmicort nebs b.i.d. 5. Carvedilol 3.125 b.i.d. 6. Vitamin B12 of 1000 mcg daily. 7. Colace 100 mg b.i.d. 8. Folic acid 1 mg daily. 9. Furosemide 40 mg q.a.m. 10. Gabapentin 300 mg at bedtime. 11. Mucinex p.r.n. 12. DuoNebs. 13. Lisinopril 2.5 mg q.a.m. 14. Prednisone 20 mg daily x7 days and then one-half tablet daily x7 days. DISCHARGE DISPOSITION: The patient will be seen in 2 months for followup. HOSPITAL COURSE: Mr. Herrera underwent preoperative evaluation for lumbar surgery with Dr. Harp. He was found to have proximal to distal inferior wall and proximal septal wall ischemia. He underwent cardiac catheterization, which revealed severe inferior hypokinesis with ejection fraction of 35% to 40% and mild mitral regurgitation. There is 20% left main, 80% proximal LAD, 99% proximal circumflex, ramus which arose from the circumflex after the 90% lesion and 80% proximal lesion. Also, the distal portion of the occluded Ramus graft could be seen to fill retrograde. Right coronary artery was totally occluded in its mid portion and a 60% acute marginal lesion. Bypass grafts revealed patent MARTIN to the LAD. The obtuse marginal 1 graft was patent; however, there was an 80% lesion distal to the anastomosis. The ramus graft (not diagonal) that was piggybacked onto the obtuse marginal graft was occluded. The distal right coronary artery graft was occluded. He underwent placement of Rebel 2.25 x 12 mm stent in the first obtuse marginal distal to the graft with reduction from 80% to 0%. In the wood and wood products labourer, he did become hypotensive with systolic pressure in the 60s and with this, developed chest pain and ST segment elevation in 2 and 3. Both his right coronary artery and distal right coronary artery grafts are occluded. With fluids and dopamine, the hypotension resolved and EKG changes resolved. After the procedure, he had problems with increased shortness of breath, probably related to his COPD and continued smoking. He was moved to the unit and underwent aggressive diuresis and Ranexa was added to his regimen. He was also seen in consultation with Dr. Man. Dr. Jas Martin started him on gabapentin for his back pain and difficulty sleeping. At the time of discharge, his room air saturation was 92%. Job ID: [id number] [facility]
--- NOTE | 2019-04-05 09:16 | PQF ---
GURVINDER MONAE GORDON G MD [id number] CLINICAL DOCUMENTATION CLARIFICATION FORM: POST DISCHARGE DATE: 04/05/2019 ATTN: Dr. Mcnamara Please exercise your independent, professional judgment in responding to the clarification form. Clinical indicators are provided on the bottom of this form for your review Please check appropriate box(s): HEART FAILURE: A. TYPE: [ ] Systolic / HFrEF [ ] Diastolic / HFpEF [ ] Combined Systolic / Diastolic B. ACUITY [ ] Acute [ ] Acute on Chronic [ ] Chronic [ ] Other diagnosis [ ] Unable to determine In addition, please specify: Present on Admission (POA): [ ] Yes [ ] No [ ] Unable to determine For continuity of documentation, please document condition throughout progress notes and discharge summary. Thank You. CLINICAL INDICATORS - SIGNS / SYMPTOMS / LABS Per discharge summary: Ejection Fraction =35-40% Per H&P: Developed hypoxia post cardiac catheterization. "Probably a component of heart failure and chronic obstructive pulmonary disease." Per H&P: CXR results: Shows what appears to be a chronic right pleural effusion. Per 04/02 PN (Donovan): "Congestive heart failure, clinically stable. Right pleural effusion secondary to congestive heart failure." Per 03/30 PN (Donovan): "Systolic cardiomyopathy with ejection fraction around 30%. " Per 03/27 PN (Todd): "Congestive heart failure. Right pleural effusion." RISKS: Per H&P: History of CAD with history of CABG/cardiomyopathy. Smoker. TREATMENTS: Per Medications: Lasix 40 mg slow IVP. 03/25-03/26. Lasix 40 mg PO 03/30-04/02. Per 03/24 consult (Mario): "Moved to CCU. Dopamine drip. 90% on fL high-flow. " (This form is maintained as a part of the permanent medical record) 2014 [employer] All Rights Reserved Alyse [email or web address] [phone] [email or web address]
== END 2019-04-02 19:59 | disposition home or self-care (01) | DRG 982 ==
LOC: CCL 06:12 → CCU 08:19 → 2NO 03-29 20:39
PROVIDERS: ADMIT Internal Medicine Cardiovascular Disease; ATTEND Internal Medicine Cardiovascular Disease
PROC: 02703DZ Dilation of Coronary Artery, One Artery with Intraluminal Device, Percutaneous Approach (ICD-10-PCS; principal; 2019-03-24)
PROC: 4A023N7 Measurement of Cardiac Sampling and Pressure, Left Heart, Percutaneous Approach (ICD-10-PCS; 2019-03-24)
PROC: B2111ZZ Fluoroscopy of Multiple Coronary Arteries using Low Osmolar Contrast (ICD-10-PCS; 2019-03-24)
PROC: B2131ZZ Fluoroscopy of Multiple Coronary Artery Bypass Grafts using Low Osmolar Contrast (ICD-10-PCS; 2019-03-24)
PROC: B2151ZZ Fluoroscopy of Left Heart using Low Osmolar Contrast (ICD-10-PCS; 2019-03-24)
PROC: 3E033XZ Introduction of Vasopressor into Peripheral Vein, Percutaneous Approach (ICD-10-PCS; 2019-03-24)
PROC: B2181ZZ Fluoroscopy of Left Internal Mammary Bypass Graft using Low Osmolar Contrast (ICD-10-PCS; 2019-03-24)
DX: J96.21 Acute and chronic respiratory failure with hypoxia (principal); J44.1 Chronic obstructive pulmonary disease with (acute) exacerbation; N17.9 Acute kidney failure, unspecified; I25.810 Atherosclerosis of coronary artery bypass graft(s) without angina pectoris; I50.9 Heart failure, unspecified; F43.10 Post-traumatic stress disorder, unspecified; F32.9 Major depressive disorder, single episode, unspecified; F17.210 Nicotine dependence, cigarettes, uncomplicated; F51.04 Psychophysiologic insomnia; I95.9 Hypotension, unspecified; G89.29 Other chronic pain; M54.9 Dorsalgia, unspecified; I25.5 Ischemic cardiomyopathy; E78.00 Pure hypercholesterolemia, unspecified; K21.9 Gastro-esophageal reflux disease without esophagitis; Z79.899 Other long term (current) drug therapy; Z95.1 Presence of aortocoronary bypass graft
CPT/HCPCS: 36415; 71045; 80048; 80053; 82805; 85025; 85347; 92928; 93005; 93010; 93455; 93798; 94640; 94660; 99152; 99153; C1725; C1769; C1876; C1887; J0583; J1265; J1644; J1940; J2250; J2405; J2920; J3010; J3475; J3490; J7512; J7620; J7626; Q9967

== ENCOUNTER 2019-04-22 13:02 | Outpatient (CLI) | payer MEDICARE, BC ==
--- NOTE | 2019-04-22 13:25 | RAD ---
EXAM: Chest 2 views: HISTORY: Dyspnea COMPARISON: 03/10/2019 FINDINGS: There is a normal-sized cardiomediastinal silhouette. The patient is status post sternotomy. There i s a moderate right pleural effusion. Degenerative changes are seen in the spine. IMPRESSION: Stable moderate right pleural effusion
== END 2019-04-22 13:03 | disposition home or self-care (01) ==
LOC: RAD 13:02
PROVIDERS: ATTEND Internal Medicine Critical Care Medicine
DX: R06.00 Dyspnea, unspecified (principal); J90 Pleural effusion, not elsewhere classified
CPT/HCPCS: 71046